=== PATIENT | female | born 1940 | race Caucasian/White ===

== ENCOUNTER 2016-06-08 20:33 | Inpatient (IN) | payer OTHER, MEDICARE ==
[~2016-06-08] VITALS: Ht 154.9 cm; Wt 73.1 kg
[2016-06-08 20:33] VITALS: BP 135/80; PULSE 113; RESP 18; O2SAT 92
[2016-06-08] MEDS ORDERED: SODIUM CHLORIDE 0.9% FLUSH 5 ML FLUSH IVF PRN ×2 (20:45→23:30)
[2016-06-08] MEDS ORDERED: MORPHINE SULFATE 4 MG/ML INJ IV PUSH ONE ×2 (20:45→21:45)
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
[2016-06-08 21:08] LABS: I-STAT POTASSIUM 3.2 MMOL/L (3.5-4.9); I-STAT SODIUM 138 MMOL/L (138-146)
[2016-06-08 21:09] VITALS: RESP 18; O2SAT 92
[2016-06-08 21:20] LABS: AUTOMATED NEUTROPHIL # 9.2 TH/MM3 (1.8-7.7); BASOPHIL % 0.3 % (0.0-2.0); EOSINOPHIL # 0.1 TH/MM3 (0-0.4); EOSINOPHIL % 0.8 % (0.0-4.0); HEMATOCRIT 37.1 % (35.0-46.0); HEMO FLAGS DIFF FINAL; LYMPH % 17.9 % (9.0-44.0); LYMPHOCYTE # 2.2 TH/MM3 (1.0-4.8); MEAN CELL VOLUME 97.9 FL (80.0-100.0); MEAN CORPUSCULAR HEMOGLOBIN 33.1 PG (27.0-34.0); MEAN CORPUSCULAR HGB CONC 33.8 % (32.0-36.0); MONO % 6.7 % (0.0-8.0); NEUT % 74.3 % (16.0-70.0); PLATELET COUNT 160 TH/MM3 (150-450); RED BLOOD COUNT 3.79 MIL/MM3 (4.00-5.30); WHITE BLOOD COUNT 12.5 TH/MM3 (4.0-11.0)
[2016-06-08 21:24] LABS: ANION GAP 10 MEQ/L (5-15); AST (GOT) 47 U/L (15-37); BICARBONATE 31.1 MEQ/L (21.0-32.0); BLOOD UREA NITROGEN 23 MG/DL (7-18); CHLORIDE 99 MEQ/L (98-107); GLOMERULAR FILTRATION RATE 60 ML/MIN (>89); POTASSIUM 3.2 MEQ/L (3.5-5.1); SODIUM (NA) 140 MEQ/L (136-145)
[2016-06-08 21:27] LABS: ALKALINE PHOSPHATASE 112 U/L (45-117); ALT (GPT) 28 U/L (10-53); TOTAL BILIRUBIN ADULT 0.5 MG/DL (0.2-1.0)
[2016-06-08] MEDS ORDERED: IOHEXOL 350 MG/ML 10 ML VIAL (for RAD DIAG) IV ONE (21:57)
[2016-06-08] MEDS ORDERED: CYMB30CA PO (22:01)
[2016-06-08] MEDS ORDERED: HYDR50TA15 PO (22:01)
[2016-06-08] MEDS ORDERED: NEXI40CA PO (22:01)
[2016-06-08] MEDS ORDERED: STATIN (22:01)
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
[2016-06-08] MEDS ORDERED: TETANUS/DIPHTHERIA TOXOID ADULT 0.5 ML VIAL IM ONE (23:00)
[2016-06-08 23:19] VITALS: BP 146/72; PULSE 100; RESP 20; O2SAT 98
[2016-06-08] MEDS ORDERED: ONDANSETRON HCL 4 MG/2 ML VIAL IV PRN (23:30)
[2016-06-08] MEDS ORDERED: ENALAPRILAT 1.25 MG/ML VIAL IV PRN (23:30)
[2016-06-08] MEDS ORDERED: MISCELLANEOUS NURSING INFORMATION XX SCH (23:30)
[2016-06-08] MEDS: BACITRACIN TOP OINT 15 GM TUBE TOP SCH (23:30)
[2016-06-08] MEDS: DOCUSATE SODIUM 100 MG/10 ML UDC PO SCH (23:30)
[2016-06-08] MEDS ORDERED: CHLORHEXIDINE GLUCONATE 2 % 1 PACK (2 CLOTHS) TOP PRN (23:30)
[2016-06-08] MEDS ORDERED: ACETAMINOPHEN/HYDROcodone 325 MG/5 MG TAB PO PRN (23:30)
[2016-06-09] VITALS (10 sets, daily range): BP systolic 102–140; BP diastolic 54–75; PULSE 94–104; RESP 16–20; TEMP 96.9–98.6; O2SAT 93–98
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
[2016-06-09] MEDS: DOCUSATE SODIUM 100 MG CAP PO SCH ×2 (01:12→07:27)
[2016-06-09] MEDS: SODIUM CHLOR 0.9% 1000 ML INJ 1,000 ML IV SCH ×4 (01:12→19:38)
[2016-06-09] MEDS: PANTOPRAZOLE SODIUM 40 MG VIAL IVP SCH (01:13)
[2016-06-09] MEDS: MORPHINE SULFATE 8 MG/ML INJ IV PUSH PRN ×9 (01:13→23:08)
[2016-06-09] MEDS: SODIUM CHLORID 0.9% 500 ML IV SCH ×2 (03:30→19:38)
[2016-06-09] MEDS ORDERED: INSULIN HUMAN REGULAR 1,000 UNITS/10 ML VIAL SQ PRN (03:30)
[2016-06-09] MEDS: LACTATED RINGER'S 1000 ML IV SCH ×2 (03:30→19:38)
[2016-06-09] MEDS ORDERED: CHLORHEXIDINE GLUCONATE 2 % 1 PACK (2 CLOTHS) TOP SCH (04:00)
[2016-06-09] MEDS: ACETAMINOPHEN/HYDROcodone 325 MG/5 MG TAB PO PRN ×5 (04:55→21:48)
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
[2016-06-09] MEDS ORDERED: NORC5TAB PO (06:51)
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
[2016-06-09] MEDS: DOCUSATE SODIUM 100 MG/10 ML UDC PO SCH (07:27)
[2016-06-09] MEDS: BACITRACIN TOP OINT 15 GM TUBE TOP SCH ×2 (07:54→19:44)
[2016-06-09 08:59] LABS: AUTOMATED NEUTROPHIL # 7.2 TH/MM3 (1.8-7.7); BASOPHIL % 0.4 % (0.0-2.0); EOSINOPHIL % 0.5 % (0.0-4.0); HEMATOCRIT 26.8 % (35.0-46.0); HEMO FLAGS DIFF FINAL; LYMPH % 15.3 % (9.0-44.0); LYMPHOCYTE # 1.5 TH/MM3 (1.0-4.8); MEAN CELL VOLUME 98.2 FL (80.0-100.0); MEAN CORPUSCULAR HEMOGLOBIN 33.1 PG (27.0-34.0); MEAN CORPUSCULAR HGB CONC 33.7 % (32.0-36.0); MONO % 9.7 % (0.0-8.0); NEUT % 74.1 % (16.0-70.0); PLATELET COUNT 123 TH/MM3 (150-450); RED BLOOD COUNT 2.73 MIL/MM3 (4.00-5.30); RED CELL DISTRIBUTION WIDTH 14.7 % (11.6-17.2); WHITE BLOOD COUNT 9.7 TH/MM3 (4.0-11.0)
[2016-06-09 09:30] LABS: BICARBONATE 31.6 MEQ/L (21.0-32.0); POTASSIUM 3.4 MEQ/L (3.5-5.1)
--- NOTE | 2016-06-09 09:43 | EKG ---
Date Performed: 06/09/2016 Time Performed: 05:10:42 PTAGE: 76 years EKG: Sinus tachycardia with PAC(s) Anterolateral T wave changes are nonspecific Borderline ECG NO PREVIOUS TRACING DOCTOR: Demarcus Parada Interpretating Date/Time 06/09/2016 09:42:04
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
[2016-06-09] MEDS ORDERED: POTASSIUM CHLORIDE 25 MEQ EFFERVESCENT TAB PO ONE (13:45)
[2016-06-09] MEDS: DOCUSATE SODIUM 50 MG/SENNA 8.6 MG TAB PO SCH (19:44)
[2016-06-09] MEDS: MAGNESIUM HYDROXIDE SUSP 30 ML CUP PO SCH (19:44)
[2016-06-10] MEDS: PANTOPRAZOLE SODIUM 40 MG VIAL IVP SCH (00:19)
[2016-06-10] MEDS: MORPHINE SULFATE 8 MG/ML INJ IV PUSH PRN ×5 (01:12→15:35)
[2016-06-10] MEDS: ACETAMINOPHEN/HYDROcodone 325 MG/5 MG TAB PO PRN ×3 (02:12→17:49)
[2016-06-10 03:25] VITALS: BP 119/58; PULSE 93; RESP 18; TEMP 97.5; O2SAT 95
[2016-06-10 08:00] VITALS: BP 117/52; PULSE 95; RESP 18; TEMP 96.7; O2SAT 98
[2016-06-10] MEDS: DOCUSATE SODIUM 50 MG/SENNA 8.6 MG TAB PO SCH ×2 (09:00→21:56)
[2016-06-10] MEDS: BACITRACIN TOP OINT 15 GM TUBE TOP SCH ×2 (09:00→21:00)
[2016-06-10] MEDS ORDERED: INFLUENZA VIRUS VACCINE (QUADRIVALENT) 0.5 ML SYR IM ONE (10:00)
--- NOTE | 2016-06-10 11:17 | PD.ORT.PN ---
Subjective Subjective Remarks No new complaints concerning her knee. She states she does have abdominal pain Objective Vitals Vital Signs Date Time Temp Pulse Resp B/P Pulse Ox O2 Delivery O2 Flow Rate FiO2 06/10/16 08:00 96.7 95 18 117/52 98 06/10/16 03:25 97.5 93 18 119/58 95 06/09/16 23:40 98.4 103 17 136/54 95 06/09/16 19:42 97 06/09/16 19:36 97.6 98 16 122/67 98 06/09/16 16:30 96.9 95 16 117/62 96 06/09/16 12:23 96 06/09/16 12:00 97.0 94 18 106/61 93 I/O 06/09/16 06/09/16 06/09/16 06/10/16 06/10/16 06/10/16 07:00 15:00 23:00 07:00 15:00 23:00 Intake Total 0 ml 1200 ml 720 ml 480 ml Balance 0 ml 1200 ml 720 ml 480 ml Intake Oral 0 ml 1200 ml 720 ml 480 ml # Voids 3 4 3 3 # Bowel Movements 0 1 0 0 Result Diagram: 06/09/16 0706 06/09/16 0706 Imaging Last 24 hours Impressions Hand X-Ray 06/09/16 0000 Signed Impressions: Service Date/Time: Thursday, June 09, 2016 00:33 - CONCLUSION: 1. Mildly displaced fracture distal right fifth metacarpal. Byron Laguna MD Pelvis X-Ray 06/08/162037 Signed Impressions: Service Date/Time: Wednesday, June 08, 2016 21:18 - CONCLUSION: No evidence of acute fracture. Status post left hip replacement. Rigoberto Darnell MD Head CT 06/08/162037 Signed Impressions: Service Date/Time: Wednesday, June 08, 2016 21:53 - CONCLUSION: No acute disease. No evidence of acute infarct, hemorrhage, mass or edema. No extra-axial fluid collections or evidence of fracture. Rigoberto Darnell MD Chest X-Ray 06/08/162037 Signed Impressions: Service Date/Time: Wednesday, June 08, 2016 21:02 - CONCLUSION: No acute disease. Rigoberto Darnell MD Chest CT 06/08/162037 Signed Impressions: Service Date/Time: Wednesday, June 08, 2016 21:57 - CONCLUSION: No evidence of acute pulmonary, mediastinal or vascular injury. Right upper anterior chest wall bruising. No evidence of acute fracture. Rigoberto Darnell MD Cervical Spine CT 06/08/162037 Signed Impressions: Service Date/Time: Wednesday, June 08, 2016 21:53 - CONCLUSION: Arthritic changes involving the C1-2 articulation with suspected calcifying pannus. Status post laminectomy and posterior fusion from C3-C6. Reversal of normal lordosis. Advanced degenerative disc disease. No evidence of acute bony or soft tissue trauma. Rigoberto Darnell MD Abdomen/Pelvis CT 06/08/162037 Signed Impressions: Service Date/Time: Wednesday, June 08, 2016 21:57 - CONCLUSION: Large lower anterior abdominal wall inflammation and hematoma. Small radiopaque structures in the right-sided portion of the hematoma. Distended gallbladder containing hyperdense material with mild intrahepatic hepatic biliary duct dilatation. No evidence of acute injury involving the liver, spleen, pancreas or kidneys. Degenerative disc disease of the lumbar spine resulting in a rotoscoliotic deformity. Pain pump is identified in place. No evidence of acute fracture. Rigoberto Darnell MD Objective Remarks RLE: +bruising and skin tears over anteromedial knee. minimal pain to touch. NVI , knee immobilizer in place Right hand: pain over 1st MC. Splint in place. Intact sensation over the radial , ulnar and median nerve distributions Assessment & Plan Assessment and Plan 1) Right Superior Patella Fx - nondisplaced -Nonop treatment -CKS at all times -no ROM -WBAT while wearing CKS -plan for DC home with [facility] -f/u Telma or [facility] in 2 weeks 2) Right Hand Fx -hand for fracture care BABATUNDE WALTERS PA-C Jun 10, 2016 11:17
[2016-06-10] MEDS ORDERED: WHEEMIS3 (11:19)
[2016-06-10] MEDS ORDERED: PLATMIS3 (11:19)
--- NOTE | 2016-06-10 11:21 | HHI.FF ---
Face to Face Verification Diagnosis: (1) Patellar fracture Physical Therapy Gait training, Safety evaluation Knee: Knee fracture, Protocol: Right, Full weight bearing Canvas Knee Splint: At all times Right LE Weight Bearing: WB as tolerated Right LE Range of Motion: No ROM I have seen patient Laurie Yusuf on 06/10/16. My clinical findings support the need for the requested home health care services because: Limited ability to care for self I certify that my clinical findings support that this patient is homebound because: Unsteady gait/balance BABATUNDE WALTERS PA-C Jun 10, 2016 11:21
[2016-06-10 12:00] VITALS: BP 102/45; PULSE 86; RESP 18; TEMP 96.6; O2SAT 95
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
[2016-06-10] MEDS ORDERED: SENN1TAB PO (13:10)
[2016-06-10] MEDS ORDERED: MILKSUS PO (13:10)
[2016-06-10] MEDS: SODIUM CHLOR 0.9% 1000 ML INJ 1,000 ML IV SCH (14:29)
[2016-06-10] MEDS: DULoxetine HCl DR 30 MG CAP PO SCH (15:47)
[2016-06-10] MEDS: METHOCARBAMOL 500 MG TAB PO SCH ×2 (17:00→21:56)
[2016-06-10] MEDS: GABAPENTIN 300 MG CAP PO SCH (17:48)
[2016-06-10 20:00] VITALS: BP 122/60; PULSE 91; RESP 18; TEMP 97.6; O2SAT 94
[2016-06-10] MEDS ORDERED: FAMOTIDINE 20 MG TAB PO SCH (21:00)
[2016-06-10] MEDS: MAGNESIUM HYDROXIDE SUSP 30 ML CUP PO SCH (21:00)
[2016-06-10] MEDS ORDERED: ATORVASTATIN 10 MG TAB PO SCH (21:00)
[2016-06-10] MEDS ORDERED: ACETAMINOPHEN 325 MG TAB PO PRN (21:45)
[2016-06-10] MEDS ORDERED: ALPRAZolam 0.5 MG TAB PO PRN (21:45)
[2016-06-11 00:01] VITALS: BP 109/54; PULSE 100; RESP 16; TEMP 98.7; O2SAT 92
[2016-06-11 04:02] VITALS: BP 125/55; PULSE 107; RESP 16; TEMP 97.7; O2SAT 91
[2016-06-11] MEDS: METHOCARBAMOL 500 MG TAB PO SCH (05:11)
[2016-06-11] MEDS ORDERED: MISC-163 (07:30)
[2016-06-11 08:00] VITALS: BP 97/50; PULSE 95; RESP 18; TEMP 97; O2SAT 92
[2016-06-11] MEDS: DOCUSATE SODIUM 50 MG/SENNA 8.6 MG TAB PO SCH ×2 (09:00→09:04)
[2016-06-11] MEDS: BACITRACIN TOP OINT 15 GM TUBE TOP SCH (09:00)
[2016-06-11] MEDS: DULoxetine HCl DR 30 MG CAP PO SCH (09:04)
[2016-06-11] MEDS: GABAPENTIN 300 MG CAP PO SCH (09:04)
[2016-06-11 12:00] VITALS: BP 125/56; PULSE 105; RESP 18; TEMP 97.5; O2SAT 95
[2016-06-11] MEDS ORDERED: ACET325T PO (12:12)
[2016-06-11] MEDS ORDERED: FAMO20TA2 PO (12:12)
[2016-06-11] MEDS ORDERED: ALPR.5 PO (12:12)
[2016-06-11] MEDS ORDERED: OXYC-392 PO (12:12)
[2016-06-11] MEDS ORDERED: LIPI10TA PO (12:12)
[2016-06-11] MEDS ORDERED: NEUR300C PO (12:12)
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
[2016-06-25] MEDS ORDERED: LIDO5DIS35 TD (09:54)
[2016-06-25] MEDS ORDERED: SENN1TAB PO (09:54)
[2016-06-25] MEDS ORDERED: DESI40OI2 TOPICAL (09:54)
[2016-06-25] MEDS ORDERED: ACET325T PO (09:54)
[2016-06-25] MEDS ORDERED: PROP10TA6 PO (09:54)
[2016-06-25] MEDS ORDERED: CYMB30CA PO (09:54)
[2016-06-25] MEDS ORDERED: BACI500O2 TOP (09:54)
[2016-06-25] MEDS ORDERED: LUNE1TAB6 PO (09:54)
[2016-06-25] MEDS ORDERED: OXYC-392 PO (09:54)
[2016-06-25] MEDS ORDERED: LIPI10TA PO (09:54)
[2016-06-25] MEDS ORDERED: MILKSUS PO (09:54)
[2016-06-25] MEDS ORDERED: ALPR.25 PO (09:54)
[2016-06-25] MEDS ORDERED: FERR325T PO (09:54)
[2016-06-25] MEDS ORDERED: HYDR50TA15 PO (09:54)
[2016-06-25] MEDS ORDERED: NEXI40CA PO (09:54)
== END 2016-06-11 12:30 | DRG 563 ==
LOC: NEPC 20:33 → NEDA 22:52 → N06B 06-09 03:04
PROVIDERS: ADMIT Surgery; ATTEND Surgery
DX: S82.001A Unspecified fracture of right patella, initial encounter for closed fracture (principal); M06.9 Rheumatoid arthritis, unspecified; I10 Essential (primary) hypertension; K21.9 Gastro-esophageal reflux disease without esophagitis; S62.306A Unspecified fracture of fifth metacarpal bone, right hand, initial encounter for closed fracture; S62.610A Displaced fracture of proximal phalanx of right index finger, initial encounter for closed fracture; S61.210A Laceration without foreign body of right index finger without damage to nail, initial encounter; S30.1XXA Contusion of abdominal wall, initial encounter; S40.019A Contusion of unspecified shoulder, initial encounter; S20.211A Contusion of right front wall of thorax, initial encounter; V44.6XXA Car passenger injured in collision with heavy transport vehicle or bus in traffic accident, initial encounter; Y92.410 Unspecified street and highway as the place of occurrence of the external cause; Z88.2 Allergy status to sulfonamides; Z91.030 Bee allergy status; S81.011A Laceration without foreign body, right knee, initial encounter; E78.5 Hyperlipidemia, unspecified; G89.29 Other chronic pain; M54.5 Low back pain; Z96.653 Presence of artificial knee joint, bilateral; E78.00 Pure hypercholesterolemia, unspecified; Z23 Encounter for immunization
CPT/HCPCS: 70450; 71010; 71260; 72125; 72128; 72131; 72170; 73130; 73564; 74177; 80048; 80053; 82435; 82565; 82947; 84132; 84295; 84520; 85025; 85610; 85730; 86850; 86900; 86901; 90471; 90686; 90714; 93005; 94150; 96374; 96376; C9113; G0008; J2270; J7030; J7120; L1830; Q2038; Q9967

== ENCOUNTER 2016-06-30 12:36 | Observation (INO) | payer MEDICARE ==
[~2016-06-30] VITALS: Ht 152.4 cm; Wt 80.0 kg
[2016-06-30] VITALS (7 sets, daily range): BP systolic 135–195; BP diastolic 65–96; PULSE 75–85; RESP 16–18; TEMP 97.8–98.5; O2SAT 80–97
[~2016-06-30 12:36] MED LIST: ACET325T PO; ALPR.25 PO; BACI500O2 TOP; CYMB30CA PO; DESI40OI2 TOPICAL; FERR325T PO; HYDR50TA15 PO; LIDO5DIS35 TD; LIPI10TA PO; LUNE1TAB6 PO; MILKSUS PO; MISC-163; NEXI40CA PO; OXYC-392 PO; PLATMIS3; PROP10TA6 PO; SENN1TAB PO; STATIN; WHEEMIS3
[2016-06-30 13:10] LABS: BLOOD GAS BASE EXCESS 10.5 mmol/L (-2-2); BLOOD GAS CARBOXYHEMOGLOBIN 4.3 % (0-4); BLOOD GAS HCO3 36 mmol/L (22-26); BLOOD GAS METHEMOGLOBIN 0.5 % (0-2); BLOOD GAS O2 HGB SATURATION 92 % (90-100); BLOOD GAS OXYGEN CONTENT 16.4 Vol % (12.0-20.0); BLOOD GAS PCO2 56 mmHg (38-42); BLOOD GAS PO2 83 mmHG (61-120); BLOOD GAS TOTAL HGB 12.6 G/DL (12.0-16.0); TEMP CORR TO 98.6
[2016-06-30 13:11] LABS: CRITICAL VALUE YES; DRAW SITE LT RADIAL; LITER FLOW 2 L/M; NUMBER OF ARTERIAL PUNCTURES 1; OXYGEN DEVICE NASAL CANNULA; STAT YES; ULNAR PULSE PRESENT
[2016-06-30 13:34] LABS: AUTOMATED NEUTROPHIL # 4.4 TH/MM3 (1.8-7.7); BASOPHIL % 0.7 % (0.0-2.0); EOSINOPHIL # 0.1 TH/MM3 (0-0.4); HEMATOCRIT 40.5 % (35.0-46.0); HEMO FLAGS DIFF FINAL; LYMPH % 15.8 % (9.0-44.0); MEAN CELL VOLUME 97.9 FL (80.0-100.0); MEAN CORPUSCULAR HEMOGLOBIN 32.1 PG (27.0-34.0); MEAN CORPUSCULAR HGB CONC 32.8 % (32.0-36.0); NEUT % 73.5 % (16.0-70.0); PLATELET COUNT 229 TH/MM3 (150-450); RED BLOOD COUNT 4.14 MIL/MM3 (4.00-5.30)
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
[2016-06-30 14:11] LABS: ALT (GPT) 16 U/L (10-53); ANION GAP 7 MEQ/L (5-15); AST (GOT) 26 U/L (15-37); BICARBONATE 36.2 MEQ/L (21.0-32.0); BLOOD UREA NITROGEN 11 MG/DL (7-18); CHLORIDE 95 MEQ/L (98-107); GLOMERULAR FILTRATION RATE 78 ML/MIN (>89); POTASSIUM 3.8 MEQ/L (3.5-5.1); SODIUM (NA) 138 MEQ/L (136-145)
[2016-06-30 14:13] LABS: ALKALINE PHOSPHATASE 117 U/L (45-117); TOTAL BILIRUBIN ADULT 1.9 MG/DL (0.2-1.0)
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
--- NOTE | 2016-06-30 14:27 | RADRPT ---
EXAM DATE/TIME: 06/30/2016 13:45 [facility] COMPARISON: KNEE RIGHT LTD (1 OR 2 VWS), June 22, 2016, 16:15. INDICATIONS : Weakness and confusion today. Evaluate lung status. MEDICAL HISTORY : Hypertension. Hypercholesterolemia. Gastroesophageal reflux disease. Cardiovascular disease. Arth ritis. SURGICAL HISTORY : Appendectomy. Pain pump. ENCOUNTER: Initial ACUITY: 1 day PAIN SCORE: Non-responsive. LOCATION: Bilateral chest FINDINGS: The heart is mildly enlarged. There are chronic-appearing interstitial changes throughout the pulmona ry parenchyma. The lungs are otherwise clear. There is rotatory scoliosis in the thoracic spine. CONCLUSION: 1. Chronic interstitial changes. No acute abnormality. Herminio Martinez MD on June 30, 2016 at 14:25 Board Certified Radiologist. This report was verified electronically.
[2016-06-30] MEDS ORDERED: hydrALAZINE HCL 20 MG/ML VIAL IV PUSH ONE (15:00)
[2016-06-30] MEDS ORDERED: CALC1TAB12 PO (15:14)
[2016-06-30] MEDS ORDERED: FUROSEMIDE 20 MG/2 ML VIAL IV PUSH ONE (15:15)
[2016-06-30] MEDS ORDERED: SODIUM CHLORIDE 0.9% FLUSH 10 ML FLUSH IV FLUSH PRN (15:30)
[2016-06-30] MEDS ORDERED: NALOXONE HCL 0.4 MG/ML AMP IV PRN (15:30)
[2016-06-30] MEDS ORDERED: ONDANSETRON HCL 4 MG/2 ML VIAL IVP PRN (15:30)
[2016-06-30] MEDS ORDERED: BISACODYL 10 MG SUPP PR PRN (15:30)
[2016-06-30] MEDS ORDERED: ACETAMINOPHEN 325 MG TAB PO PRN (15:30)
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
[2016-06-30] MEDS ORDERED: HEPARIN SODIUM - SQ 10,000 UNITS/ML VIAL SQ SCH (16:00)
[2016-06-30] MEDS ORDERED: AZITHROMYCIN INJ 250 MG in SODIUM CHLOR 0.9% 250 ML INJ 250 ML IV SCH (18:00)
[2016-06-30 18:02] LABS: BLOOD, URINE NEG (NEG); GLUCOSE,URINE NEG (NEG); HYALINE CAST, URINE 1 /lpf (RARE); KETONE, URINE NEG (NEG); NITRITE,URINE NEG (NEG); URINE COLOR YELLOW (YELLW/STRAW)
[2016-06-30 18:05] LABS: COMMENT (UR) CATH-CULT NOT IND; CULTURE IF INDICATED CATH CULTURE NOT IND
[2016-06-30 18:07] LABS: AMPHETAMINE, URINE NEG (NEG); BARBITURATES, URINE NEG (NEG); COCAINE, URINE NEG (NEG)
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
[2016-06-30] MEDS: PANTOPRAZOLE SODIUM 40 MG VIAL IV PUSH SCH (18:21)
[2016-06-30] MEDS: RESP: ALBUTEROL 2.5 MG/IPRATROPIUM 0.5 MG NEB (SCH) NEB (19:59)
[2016-06-30] MEDS ORDERED: cefTRIAXone INJ 1,000 MG in SODIUM CHLORIDE 0.9% INJ 100 ML IV SCH (20:00)
[2016-06-30] MEDS: CALCIUM/VITAMIN D 250 MG/125 U TAB PO SCH (20:26)
[2016-06-30] MEDS: ATORVASTATIN 10 MG TAB PO SCH (20:27)
[2016-06-30] MEDS: guaiFENesin E.R. 600 MG TAB PO SCH (20:27)
[2016-06-30] MEDS: SUCRALFATE 1 GM/10 ML CUP PO SCH (20:27)
[2016-06-30] MEDS: ZINC OXIDE 40% OINT 60 GM TUBE TOPICAL SCH (20:36)
[2016-06-30] MEDS: SODIUM CHLORIDE 0.9% FLUSH 10 ML FLUSH IV FLUSH SCH (20:37)
[2016-07-01] VITALS (10 sets, daily range): BP systolic 101–152; BP diastolic 45–78; PULSE 68–104; RESP 18–20; TEMP 97.7–98.8; O2SAT 92–100
[2016-07-01] MEDS: RESP: ALBUTEROL 2.5 MG/IPRATROPIUM 0.5 MG NEB (SCH) NEB ×7 (00:30→23:32)
[2016-07-01 03:45] LABS: AUTOMATED NEUTROPHIL # 5.5 TH/MM3 (1.8-7.7); BASOPHIL # 0.1 TH/MM3 (0-0.2); BASOPHIL % 0.9 % (0.0-2.0); EOSINOPHIL # 0.1 TH/MM3 (0-0.4); EOSINOPHIL % 1.8 % (0.0-4.0); HEMATOCRIT 36.9 % (35.0-46.0); HEMO FLAGS DIFF FINAL; LYMPH % 15.8 % (9.0-44.0); LYMPHOCYTE # 1.2 TH/MM3 (1.0-4.8); MEAN CELL VOLUME 98.8 FL (80.0-100.0); MEAN CORPUSCULAR HEMOGLOBIN 32.3 PG (27.0-34.0); MEAN CORPUSCULAR HGB CONC 32.7 % (32.0-36.0); MONO % 9.6 % (0.0-8.0); NEUT % 71.9 % (16.0-70.0); PLATELET COUNT 222 TH/MM3 (150-450); RED BLOOD COUNT 3.74 MIL/MM3 (4.00-5.30); RED CELL DISTRIBUTION WIDTH 16.5 % (11.6-17.2); WHITE BLOOD COUNT 7.7 TH/MM3 (4.0-11.0)
[2016-07-01 03:53] LABS: PROTHROMBIN TIME - PATIENT 11.3 SEC (9.8-11.6)
[2016-07-01] MEDS: SUCRALFATE 1 GM/10 ML CUP PO SCH ×4 (06:51→20:03)
[2016-07-01] MEDS: ZINC OXIDE 40% OINT 60 GM TUBE TOPICAL SCH ×2 (09:00→20:04)
[2016-07-01] MEDS ORDERED: ACETAMINOPHEN/HYDROcodone 325 MG/7.5 MG TAB PO PRN (09:00)
[2016-07-01] MEDS: SODIUM CHLORIDE 0.9% FLUSH 10 ML FLUSH IV FLUSH SCH ×2 (09:00→20:03)
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
[2016-07-01] MEDS: DULoxetine HCl DR 30 MG CAP PO SCH (09:20)
[2016-07-01] MEDS: guaiFENesin E.R. 600 MG TAB PO SCH ×2 (09:20→20:04)
[2016-07-01] MEDS: PROPRANOLOL HCL 10 MG TAB PO SCH ×2 (09:20→13:38)
[2016-07-01] MEDS: hydrALAZINE HCL 25 MG TAB PO SCH (09:20)
[2016-07-01] MEDS: ACETAMINOPHEN/HYDROcodone 325 MG/5 MG TAB PO PRN ×3 (09:20→23:29)
[2016-07-01] MEDS: CALCIUM/VITAMIN D 250 MG/125 U TAB PO SCH ×2 (09:20→20:04)
[2016-07-01] MEDS: FUROSEMIDE 40 MG TAB PO SCH (09:21)
--- NOTE | 2016-07-01 14:07 | EKG ---
Date Performed: 06/30/2016 Time Performed: 12:45:57 PTAGE: 76 years EKG: Sinus rhythm WITH FREQUENT SUPRAVENTRICULAR PREMATURE COMPLEXES IN A BIGEMINAL PATTERN POSSIBLE LEFT ATRIAL ENLAR GEMENT ST DEVIATION AND MODERATE T-WAVE ABNORMALITY, CONSIDER ANTEROLATERAL ISCHEMIA Compared to the previous tracing ventricular ectopy and T wave abnormalities are new, consider ischemia Clinical juan pablo elation is recommended ABNORMAL ECG PREVIOUS TRACING : 06/09/2016 05.10 DOCTOR: Edson Ramirez Interpretating Date/Time 07/01/2016 14:05:45
[2016-07-01] MEDS: PANTOPRAZOLE SODIUM 40 MG VIAL IV PUSH SCH (18:06)
--- NOTE | 2016-07-01 19:00 | EC ---
Study Study Date:07/01/2016 STUDY CONCLUSIONS SUMMARY - Procedure narrative: Transthoracic echocardiography. Image quality was fair. The study was technically limited due to poor acoustic window availability. - Left ventricle: The cavity size was normal. Systolic function was normal. The estimated ejection fraction was in the range of 60% to 65%. Although no diagnostic regional wall motion abnormality was identified, this possibility cannot be completely excluded on the basis of this study. Doppler parameters are consistent with abnormal left ventricular relaxation (grade 1 diastolic dysfunction). If LV function is below 40, please consider prescribing an ACEI or ARB or document rationale for non-use. PROCEDURE DATA STUDY STATUS: Elective. Procedure: Transthoracic echocardiography. Image quality was fair. The study was technically limited due to poor acoustic window availability. Scanning was performed from the parasternal, apical, and subcostal acoustic windows. Study completion: The patient tolerated the procedure well. Transthoracic echocardiography. M-mode, complete 2D, complete spectral Doppler, and color Doppler. Height: Height: 60in. Weight: Weight: 175.6lb. Body mass index: BMI: 34.4kg/m^2. Body surface area: BSA: 1.77m^2. Patient status: Inpatient. CARDIAC ANATOMY LEFT VENTRICLE: The cavity size was normal. Systolic function was normal. The estimated ejection fraction was in the range of 60% to 65%. Although no diagnostic regional wall motion abnormality was identified, this possibility cannot be completely excluded on the basis of this study. Doppler parameters are consistent with abnormal left ventricular relaxation (grade 1 diastolic dysfunction). AORTIC VALVE: The valve appears to be grossly normal. Trileaflet. Doppler: There was no stenosis. No significant regurgitation. Valve area: 2.16cm^2 (Vmax). Indexed valve area: 1.22cm^2/m^2 (Vmax). Peak gradient: 17mm Hg (S). MITRAL VALVE: The valve appears to be grossly normal. Doppler: There was no evidence for stenosis. Trace to mild regurgitation. LEFT ATRIUM: The atrium was normal in size. ATRIAL SEPTUM: No defect or patent foramen ovale was identified. RIGHT VENTRICLE: The cavity size was normal. PULMONIC VALVE: Not well visualized. Doppler: There was no evidence for stenosis. No significant regurgitation. TRICUSPID VALVE: The valve appears to be grossly normal. Doppler: There was no evidence for stenosis. Trace to mild regurgitation. PERICARDIUM: There was no pericardial effusion. Patient weight: 175.6lb _Ejection fraction:_ 65-75% _Fractional shortening:_ 32% up to 5Kg 5-11.5Kg 11.6-22.9Kg 23-45Kg 45-57Kg Aortic Root 7-13 <17 13-22 17-27 17-27 LA diam 6-13 <23 24-38 33-47 37-40 RVID 10-17 7-15 7-15 7-18 8-17 LVIDd 12-22 <32 24-38 33-47 37-40 LVPW 2-4 3-6 5-7 6-8 7-8 IVS 2-4 3-6 5-7 6-8 7-8 BASIC MEASUREMENTS ADULT NORMAL Left ventricle LV internal dimension, ED, chordal *38.3 mm 43-52 level, PLAX LV internal dimension, ES, chordal 30.2 mm 23-38 level, PLAX Fractional shortening, chordal level, *21 % >29 PLAX LV posterior wall thickness, ED 9.12 mm IVS/LVPW ratio, ED 1 <1.3 Ventricular septum Septal thickness, ED 9.1 mm Aortic valve Leaflet separation 18 mm 15-26 Right ventricle RV internal dimension, ED, PLAX 20.4 mm 19-38 BASIC MEASUREMENTS ADULT NORMAL Aortic valve Leaflet separation 18 mm 15-26 Aorta Root diameter, ED 29 mm 20-37 Left atrium Anterior-posterior dimension, ES 22 mm 19-40 Anterior-posterior dimension index, ES 1.24 cm/m^2 <2.2 LA/aortic root ratio 0.76 DOPPLER MEASUREMENTS ADULT NORMAL Main pulmonary artery Pressure, S *37 mm Hg =30 Aortic valve Peak velocity, S 208 cm/s Peak gradient, S 17 mm Hg Valve area, Vmax 2.16 cm^2 Valve area index, Vmax 1.22 cm^2/m^2 Mitral valve Peak E-wave velocity 70.1 cm/s Peak A-wave velocity 98.2 cm/s Deceleration time *257 ms 150-230 Peak E/A ratio 0.7 Maximal regurgitant velocity 227 cm/s Tricuspid valve Regurgitant peak velocity 292 cm/s Peak RV-RA gradient, S 34 mm Hg Maximal regurgitant velocity 292 cm/s Systemic veins Estimated CVP 10 mm Hg Right ventricle RV pressure, S *44 mm Hg <30 Pulmonic valve Peak velocity, S 132 cm/s LEGEND: Mean values are shown as u=mean value. Asterisk (*) [place] values outside specified normal range. Prepared and signed by Brown Alexandre [id number]
[2016-07-01] MEDS: ATORVASTATIN 10 MG TAB PO SCH (20:03)
[2016-07-01 22:36] LABS: BICARBONATE 34.9 MEQ/L (21.0-32.0); INDIRECT BILIRUBIN 0.8 MG/DL (0.0-0.8); TOTAL BILIRUBIN ADULT 1.2 MG/DL (0.2-1.0)
[2016-07-02] VITALS (10 sets, daily range): BP systolic 100–126; BP diastolic 50–60; PULSE 71–90; RESP 17–20; TEMP 97.8–98.2; O2SAT 80–97
[2016-07-02] MEDS ORDERED: ESZOPICLONE 1 MG TAB PO ONE (00:30)
[2016-07-02] MEDS: RESP: ALBUTEROL 2.5 MG/IPRATROPIUM 0.5 MG NEB (SCH) NEB ×5 (03:02→23:13)
[2016-07-02] MEDS: SUCRALFATE 1 GM/10 ML CUP PO SCH ×4 (06:27→21:00)
[2016-07-02 08:03] LABS: AUTOMATED NEUTROPHIL # 5.5 TH/MM3 (1.8-7.7); BASOPHIL % 0.5 % (0.0-2.0); EOSINOPHIL # 0.1 TH/MM3 (0-0.4); EOSINOPHIL % 1.4 % (0.0-4.0); HEMATOCRIT 35.7 % (35.0-46.0); HEMO FLAGS DIFF FINAL; LYMPH % 15.5 % (9.0-44.0); LYMPHOCYTE # 1.2 TH/MM3 (1.0-4.8); MEAN CELL VOLUME 97.7 FL (80.0-100.0); MEAN CORPUSCULAR HEMOGLOBIN 31.4 PG (27.0-34.0); MEAN CORPUSCULAR HGB CONC 32.2 % (32.0-36.0); MONO % 12.5 % (0.0-8.0); NEUT % 70.1 % (16.0-70.0); PLATELET COUNT 189 TH/MM3 (150-450); RED BLOOD COUNT 3.65 MIL/MM3 (4.00-5.30); RED CELL DISTRIBUTION WIDTH 16.5 % (11.6-17.2); WHITE BLOOD COUNT 7.9 TH/MM3 (4.0-11.0)
[2016-07-02 08:18] LABS: POTASSIUM 3.3 MEQ/L (3.5-5.1)
[2016-07-02] MEDS: FUROSEMIDE 40 MG TAB PO SCH (08:48)
[2016-07-02] MEDS: CALCIUM/VITAMIN D 250 MG/125 U TAB PO SCH ×2 (08:48→23:03)
[2016-07-02] MEDS: DULoxetine HCl DR 30 MG CAP PO SCH (08:48)
[2016-07-02] MEDS: hydrALAZINE HCL 25 MG TAB PO SCH (08:49)
[2016-07-02] MEDS: ZINC OXIDE 40% OINT 60 GM TUBE TOPICAL SCH ×2 (08:49→23:00)
[2016-07-02] MEDS: guaiFENesin E.R. 600 MG TAB PO SCH ×2 (08:49→23:03)
[2016-07-02] MEDS: SODIUM CHLORIDE 0.9% FLUSH 10 ML FLUSH IV FLUSH SCH ×2 (08:50→21:00)
[2016-07-02] MEDS: PROPRANOLOL HCL 10 MG TAB PO SCH ×2 (08:51→14:00)
[2016-07-02] MEDS: ACETAMINOPHEN/HYDROcodone 325 MG/5 MG TAB PO PRN ×3 (08:55→23:04)
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
[2016-07-02] MEDS: PETROLATUM 49%/ZINC OXIDE 15% 4 OUNCE TUBE TOPICAL SCH (12:45)
[2016-07-02] MEDS: POTASSIUM CHLORIDE 20 MEQ CONTROLLED RELEASE TAB PO SCH (12:46)
[2016-07-02] MEDS ORDERED: ALPR.25 PO (12:54)
[2016-07-02] MEDS ORDERED: OXYC-392 PO (12:54)
[2016-07-02] MEDS ORDERED: FURO20TA PO (12:54)
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
[2016-07-02] MEDS ORDERED: OXYGENTANK NAS.CANULA (12:57)
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
[2016-07-02] MEDS ORDERED: LORazepam 2 MG/ML VIAL IV PUSH ONE (16:00)
[2016-07-02] MEDS: MORPHINE SULFATE 4 MG/ML INJ IV PUSH ONE ×2 (16:00→17:01)
--- NOTE | 2016-07-02 16:30 | RADRPT ---
EXAM DATE/TIME: 07/02/2016 16:02 [facility] COMPARISON: CHEST SINGLE AP, June 30, 2016, 13:45. INDICATIONS : Pain MEDICAL HISTORY : Congestive heart failure. SURGICAL HISTORY : None. ENCOUNTER: Initial ACUITY: 1 day PAIN SCORE: 4/10 LOCATION: chest FINDINGS: The heart is stable. Minimal left basilar streakiness is noted consistent with probable atelectasis. There is elevation of the right hemidiaphragm. Degenerative changes and scoliosis of the thoracic spine are noted. No pulmonary edema is noted. CONCLUSION: 1. Minimal left basilar atelectasis. 2. Degenerative changes and scoliosis of the thoracic spine. 3. Elevation of the right hemidiaphragm. Reji Christiansen MD on July 02, 2016 at 16:25 Board Certified Radiologist. This report was verified electronically.
[2016-07-02] MEDS: PANTOPRAZOLE SODIUM 40 MG VIAL IV PUSH SCH (17:00)
[2016-07-02 17:49] LABS: CREATINE KINASE 98 U/L (26-192)
[2016-07-02] MEDS ORDERED: IOHEXOL 350 MG/ML 10 ML VIAL (for RAD DIAG) IV ONE (18:40)
--- NOTE | 2016-07-02 18:54 | RADRPT ---
EXAM DATE/TIME: 07/02/2016 18:39 [facility] COMPARISON: CT THORAX W/O CONTRAST, June 30, 2016, 17:52. INDICATIONS : Shortness of breath with chest pain; evaluate for pulmonary embolism. IV CONTRAST: 73 cc Omnipaque 350 (iohexol) IV RADIATION DOSE: 23.14 CTDIvol (mGy) MEDICAL HISTORY : Hypertension. Ulcers. Gastroesophageal reflux disease. SURGICAL HISTORY : Back surgery. ENCOUNTER: Initial ACUITY: 1 day PAIN SCALE: 5/10 LOCATION: chest TECHNIQUE: Volumetric scanning of the chest was performed using a pulmonary embolism protocol MIP images were re constructed. Using automated exposure control and adjustment of the mA and/or kV according to patien t size, radiation dose was kept as low as reasonably achievable to obtain optimal diagnostic quality images. FINDINGS: PULMONARY ARTERIES: No filling defects are seen in the pulmonary arteries through the segmental level. LUNGS: Patchy bilateral groundglass rectal opacities in areas of basilar atelectasis are grossly stable. PLEURAE: There is no pleural thickening or pleural effusion. MEDIASTINUM: There is good visualization of the great vessels of the middle mediastinum. No evidence of mediastin al or hilar adenopathy/mass. MUSCULOSKELETAL: Scoliosis and degenerative changes in the spine. MISCELLANEOUS: Elevated right diaphragm is unchanged. The visualized upper abdominal organs demonstrate no acute abn ormality. CONCLUSION: No evidence of pulmonary embolism Seferino Ram MD on July 02, 2016 at 18:49 Board Certified Radiologist. This report was verified electronically.
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
[2016-07-02] MEDS: ATORVASTATIN 10 MG TAB PO SCH (23:03)
[2016-07-03] MEDS: RESP: ALBUTEROL 2.5 MG/IPRATROPIUM 0.5 MG NEB (SCH) NEB ×3 (03:04→11:06)
[2016-07-03 03:17] VITALS: BP 121/60; PULSE 82; RESP 19; TEMP 97.9; O2SAT 95
[2016-07-03] MEDS: SUCRALFATE 1 GM/10 ML CUP PO SCH ×2 (06:25→11:57)
[2016-07-03 07:42] VITALS: BP 121/67; PULSE 90; RESP 18; TEMP 97.2; O2SAT 93
[2016-07-03 07:45] VITALS: O2SAT 94
[2016-07-03 08:00] VITALS: PULSE 92
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
[2016-07-03] MEDS: CALCIUM/VITAMIN D 250 MG/125 U TAB PO SCH (08:56)
[2016-07-03] MEDS: DULoxetine HCl DR 30 MG CAP PO SCH (08:56)
[2016-07-03] MEDS: guaiFENesin E.R. 600 MG TAB PO SCH (08:56)
[2016-07-03] MEDS: POTASSIUM CHLORIDE 20 MEQ CONTROLLED RELEASE TAB PO SCH (08:56)
[2016-07-03] MEDS: hydrALAZINE HCL 25 MG TAB PO SCH (08:56)
[2016-07-03] MEDS: FUROSEMIDE 40 MG TAB PO SCH (08:56)
[2016-07-03] MEDS: SODIUM CHLORIDE 0.9% FLUSH 10 ML FLUSH IV FLUSH SCH (08:57)
[2016-07-03] MEDS: ZINC OXIDE 40% OINT 60 GM TUBE TOPICAL SCH (09:00)
[2016-07-03] MEDS: PETROLATUM 49%/ZINC OXIDE 15% 4 OUNCE TUBE TOPICAL SCH (09:00)
[2016-07-03] MEDS: PROPRANOLOL HCL 10 MG TAB PO SCH (09:00)
[2016-07-03] MEDS ORDERED: SENS113T TOPICAL (11:35)
[2016-07-03] MEDS ORDERED: CYMB30CA PO (11:35)
[2016-07-03] MEDS ORDERED: LIPI10TA PO (11:35)
[2016-07-03] MEDS ORDERED: POTA-243 PO (11:35)
[2016-07-03] MEDS ORDERED: SENN1TAB PO (11:35)
[2016-07-03] MEDS ORDERED: NEXI40CA PO (11:35)
[2016-07-03] MEDS ORDERED: CALC1TAB12 PO (11:35)
[2016-07-03] MEDS ORDERED: LIDO5DIS35 TD (11:35)
[2016-07-03] MEDS ORDERED: PROP10TA6 PO (11:35)
[2016-07-03] MEDS ORDERED: HYDR50TA15 PO (11:35)
[2016-07-03] MEDS ORDERED: FERR325T PO (11:35)
[2016-07-03 12:05] VITALS: BP 104/51; PULSE 70; RESP 18; TEMP 97; O2SAT 92
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
--- NOTE | 2016-07-03 16:34 | EKG ---
Date Performed: 07/02/2016 Time Performed: 16:09:14 PTAGE: 76 years EKG: Sinus rhythm ARM LEADS REVERSED Anterior T wave abnormalities suggestive of endocardial ischemia or infarction Th e rest of the EKG cannot be compared due to incorrect lead placement on the limb leads ATYPICAL ECG PREVIOUS TRACING : 06/30/2016 12.45 DOCTOR: Yogesh Tay Interpretating Date/Time 07/03/2016 16:33:11
[2016-07-03] MEDS ORDERED: PANTOPRAZOLE SOD 40 MG DELAYED RELEASE TAB PO SCH (18:00)
== END 2016-07-03 14:45 | disposition home or self-care (01) ==
LOC: NEPA 12:36 → INTOOBSV 15:20 → NEDA 15:20 → NEPGCP 18:27 → UNDODISOB 07-03 14:13
PROVIDERS: ADMIT Hospitalist; ATTEND Hospitalist
DX: G93.41 Metabolic encephalopathy (principal); I11.0 Hypertensive heart disease with heart failure; I50.9 Heart failure, unspecified; G89.29 Other chronic pain; M19.90 Unspecified osteoarthritis, unspecified site; E78.00 Pure hypercholesterolemia, unspecified; K21.9 Gastro-esophageal reflux disease without esophagitis; R09.02 Hypoxemia; R06.02 Shortness of breath; L89.151 Pressure ulcer of sacral region, stage 1; I25.10 Atherosclerotic heart disease of native coronary artery without angina pectoris; E78.5 Hyperlipidemia, unspecified; M54.9 Dorsalgia, unspecified; F41.9 Anxiety disorder, unspecified; S82.009D Unspecified fracture of unspecified patella, subsequent encounter for closed fracture with routine healing; V89.2XXD Person injured in unspecified motor-vehicle accident, traffic, subsequent encounter; R07.89 Other chest pain; Z88.2 Allergy status to sulfonamides; Z88.8 Allergy status to other drugs, medicaments and biological substances; Z91.030 Bee allergy status; Z91.14 Patient's other noncompliance with medication regimen
CPT/HCPCS: 36600; 70450; 71010; 71250; 71275; 74000; 76937; 80048; 80053; 80076; 80307; 81001; 82550; 82805; 83690; 83880; 84484; 85025; 85610; 87040; 87449; 93005; 93306; 94150; 94620; 94640; 94664; 97163; 97166; 99285; C9113; G0378; G8987; G8988; J0456; J0696; J1940; J2060; J7050; Q9967; J2270

== ENCOUNTER 2016-07-21 16:25 | Inpatient (IN) | payer MEDICARE ==
[~2016-07-21] VITALS: Ht 152.4 cm; Wt 65.7 kg
[~2016-07-21 16:25] MED LIST changes: -ACET325T PO; -ALPR.25 PO; -BACI500O2 TOP; +CALC1TAB12 PO; -DESI40OI2 TOPICAL; +FURO20TA PO; -LUNE1TAB6 PO; -MILKSUS PO; -MISC-163; +OXYGENTANK NAS.CANULA; -PLATMIS3; +POTA-243 PO; +SENS113T TOPICAL; -STATIN; -WHEEMIS3
[2016-07-21 16:29] VITALS: BP 113/57; PULSE 80; RESP 18; TEMP 98.5; O2SAT 88
--- NOTE | 2016-07-21 16:46 | PD ---
Physical Exam Time Seen by Provider: 16:41 Narrative Pt brought to the ED by her daughter for evaluation AMS and low oxygen saturation. Per the daughter the patient is more confused today and was noted to have an oxygen saturation of 81% at the pain management clinic today. Patient denies CP or SOB. Oxygen saturation is 88% on RA here in the ED. Otherwise VS stable. Per daughter she was on oxygen until about 5 days ago, hx of CHF. Patient will be transferred to medical bed immediately from triage. Data Data Last Documented VS Vital Signs Date Time Temp Pulse Resp B/P Pulse Ox O2 Delivery O2 Flow Rate FiO2 07/21/16 16:29 98.5 80 18 113/57 88 Room Air MDM Supervised Visit with ALEK: Aida Quinonez Jul 21, 2016 16:46
[2016-07-21] MEDS ORDERED: SODIUM CHLORIDE 0.9% FLUSH 10 ML FLUSH IVF PRN (17:30)
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
--- NOTE | 2016-07-21 17:58 | RADRPT ---
EXAM DATE/TIME: 07/21/2016 17:29 [facility] COMPARISON: CHEST SINGLE AP, July 02, 2016, 16:02. INDICATIONS : Shortness of breath MEDICAL HISTORY : Hypertension SURGICAL HISTORY : None. ENCOUNTER: Initial ACUITY: 1 day PAIN SCORE: Non-responsive. LOCATION: Bilateral chest FINDINGS: A single view of the chest demonstrates the lungs to be symmetrically aerated without evidence of mas s, infiltrate or effusion. The cardiomediastinal contours are unremarkable. Osseous structures are intact. Elevation of the right hemidiaphragm again noted. CONCLUSION: No evidence of acute cardiopulmonary disease. Seferino Juárez MD on July 21, 2016 at 17:56 Board Certified Radiologist. This report was verified electronically.
[2016-07-21 18:23] LABS: AUTOMATED NEUTROPHIL # 4.1 TH/MM3 (1.8-7.7); BASOPHIL # 0.1 TH/MM3 (0-0.2); BASOPHIL % 0.9 % (0.0-2.0); EOSINOPHIL # 0.3 TH/MM3 (0-0.4); EOSINOPHIL % 4.2 % (0.0-4.0); HEMATOCRIT 39.9 % (35.0-46.0); HEMO FLAGS DIFF FINAL; LYMPH % 22.3 % (9.0-44.0); LYMPHOCYTE # 1.4 TH/MM3 (1.0-4.8); MEAN CELL VOLUME 94.2 FL (80.0-100.0); MEAN CORPUSCULAR HEMOGLOBIN 30.4 PG (27.0-34.0); MEAN CORPUSCULAR HGB CONC 32.3 % (32.0-36.0); MONO % 8.7 % (0.0-8.0); NEUT % 63.9 % (16.0-70.0); PLATELET COUNT 200 TH/MM3 (150-450); RED BLOOD COUNT 4.24 MIL/MM3 (4.00-5.30); RED CELL DISTRIBUTION WIDTH 15.3 % (11.6-17.2); WHITE BLOOD COUNT 6.3 TH/MM3 (4.0-11.0)
[2016-07-21 18:43] LABS: ANION GAP 3 MEQ/L (5-15); BLOOD UREA NITROGEN 14 MG/DL (7-18); CHLORIDE 96 MEQ/L (98-107); GLOMERULAR FILTRATION RATE 56 ML/MIN (>89); POTASSIUM 4.3 MEQ/L (3.5-5.1); SODIUM (NA) 137 MEQ/L (136-145)
[2016-07-21 18:47] LABS: CREATINE KINASE 104 U/L (26-192)
[2016-07-21 18:59] LABS: CKMB 10.5 NG/ML (0.5-3.6)
[2016-07-21] MEDS ORDERED: NALOXONE HCL 0.4 MG/ML AMP IV PRN (19:45)
[2016-07-21] MEDS ORDERED: ONDANSETRON HCL 4 MG/2 ML VIAL IVP PRN (19:45)
[2016-07-21] MEDS ORDERED: SODIUM CHLORIDE 0.9% FLUSH 10 ML FLUSH IV FLUSH PRN (19:45)
[2016-07-21 19:57] VITALS: O2SAT 93
[2016-07-21 20:33] LABS: BLOOD GAS BASE EXCESS 6.5 mmol/L (-2-2); BLOOD GAS CARBOXYHEMOGLOBIN 1.6 % (0-4); BLOOD GAS HCO3 33 mmol/L (22-26); BLOOD GAS METHEMOGLOBIN 0.5 % (0-2); BLOOD GAS O2 HGB SATURATION 95 % (90-100); BLOOD GAS OXYGEN CONTENT 17.1 Vol % (12.0-20.0); BLOOD GAS PCO2 74 mmHg (38-42); BLOOD GAS PO2 97 mmHG (61-120); BLOOD GAS TOTAL HGB 12.8 G/DL (12.0-16.0); TEMP CORR TO 98.6
[2016-07-21 20:35] LABS: CRITICAL VALUE YES; OXYGEN DEVICE NASAL CANNULA
[2016-07-21 20:36] LABS: DRAW SITE LT RADIAL; FIO2 94 %; LITER FLOW 3 L/M; NUMBER OF ARTERIAL PUNCTURES 1; STAT YES; ULNAR PULSE PRESENT
[2016-07-21] MEDS: SODIUM CHLORIDE 0.9% FLUSH 10 ML FLUSH IV FLUSH SCH (21:24)
[2016-07-21] MEDS: ENOXAPARIN SODIUM 40 MG/0.4 ML SYRINGE SQ SCH (21:24)
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
[2016-07-21] MEDS ORDERED: GNP3TAB PO (23:02)
[2016-07-21] MEDS ORDERED: OXYC-392 PO (23:02)
[2016-07-21] MEDS ORDERED: ESZO1TAB PO (23:02)
[2016-07-21] MEDS ORDERED: FERR325T PO (23:02)
[2016-07-21] MEDS ORDERED: ONDA1TAB16 PO (23:02)
[2016-07-21] MEDS ORDERED: OSCA200T PO (23:04)
[2016-07-21] MEDS ORDERED: K-TA10TA PO (23:09)
[2016-07-21] MEDS ORDERED: SENN8.6T19 PO (23:15)
[2016-07-21] MEDS ORDERED: TRAM50TA PO (23:15)
[2016-07-21] MEDS ORDERED: ONDANSETRON ODT 4 MG TAB PO PRN (23:30)
[2016-07-22] VITALS (7 sets, daily range): BP systolic 114–147; BP diastolic 55–78; PULSE 77–90; RESP 12–18; TEMP 95.4–98.7; O2SAT 85–97
[2016-07-22] MEDS: ACETAMINOPHEN 325 MG TAB PO PRN ×2 (01:41→09:46)
[2016-07-22 05:52] LABS: AUTOMATED NEUTROPHIL # 3.8 TH/MM3 (1.8-7.7); BASOPHIL # 0.1 TH/MM3 (0-0.2); BASOPHIL % 0.9 % (0.0-2.0); EOSINOPHIL # 0.3 TH/MM3 (0-0.4); EOSINOPHIL % 4.7 % (0.0-4.0); HEMATOCRIT 38.9 % (35.0-46.0); HEMO FLAGS DIFF FINAL; LYMPHOCYTE # 1.6 TH/MM3 (1.0-4.8); MEAN CELL VOLUME 92.9 FL (80.0-100.0); MEAN CORPUSCULAR HEMOGLOBIN 31.3 PG (27.0-34.0); MEAN CORPUSCULAR HGB CONC 33.6 % (32.0-36.0); MONO % 8.3 % (0.0-8.0); NEUT % 60.1 % (16.0-70.0); PLATELET COUNT 206 TH/MM3 (150-450); RED BLOOD COUNT 4.18 MIL/MM3 (4.00-5.30); WHITE BLOOD COUNT 6.3 TH/MM3 (4.0-11.0)
[2016-07-22 06:28] LABS: BICARBONATE 31.5 MEQ/L (21.0-32.0)
[2016-07-22] MEDS: DULoxetine HCl DR 30 MG CAP PO SCH (08:27)
[2016-07-22] MEDS: FUROSEMIDE 20 MG TAB PO SCH (08:27)
[2016-07-22] MEDS: CALCIUM/VITAMIN D 250 MG/125 U TAB PO SCH ×2 (08:27→20:46)
[2016-07-22] MEDS: PANTOPRAZOLE SOD 40 MG DELAYED RELEASE TAB PO SCH (08:27)
[2016-07-22] MEDS: LIDOCAINE HCL 5% PATCH T-DERMAL SCH (08:28)
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
[2016-07-22] MEDS: SODIUM CHLORIDE 0.9% FLUSH 10 ML FLUSH IV FLUSH SCH ×2 (09:00→20:49)
[2016-07-22] MEDS: FERROUS SULFATE 325 MG (65 MG ELEMENTAL IRON) TAB PO SCH ×2 (09:00→20:45)
[2016-07-22] MEDS: DOCUSATE SODIUM 50 MG/SENNA 8.6 MG TAB PO SCH ×2 (09:00→20:46)
[2016-07-22 13:01] LABS: BLOOD GAS BASE EXCESS 7.3 mmol/L (-2-2); BLOOD GAS HCO3 33 mmol/L (22-26); BLOOD GAS METHEMOGLOBIN 0.2 % (0-2); BLOOD GAS O2 HGB SATURATION 81 % (90-100); BLOOD GAS OXYGEN CONTENT 14.5 Vol % (12.0-20.0); BLOOD GAS PCO2 57 mmHg (38-42); BLOOD GAS PO2 49 mmHG (61-120); BLOOD GAS TOTAL HGB 12.8 G/DL (12.0-16.0); TEMP CORR TO 98.6
[2016-07-22 13:03] LABS: CRITICAL VALUE YES; DRAW SITE LT RADIAL; FIO2 21 %; NUMBER OF ARTERIAL PUNCTURES 1; OXYGEN DEVICE RA; STAT YES; ULNAR PULSE PRESENT
[2016-07-22] MEDS: LEVOFLOXACIN 750 MG TAB PO SCH (13:38)
[2016-07-22] MEDS: ACETAMINOPHEN/HYDROcodone 325 MG/5 MG TAB PO PRN (17:39)
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
[2016-07-22] MEDS: POTASSIUM CHLORIDE 10 MEQ CONTROLLED RELEASE TAB PO SCH (20:46)
[2016-07-22] MEDS: ATORVASTATIN 10 MG TAB PO SCH (20:46)
[2016-07-22] MEDS: ENOXAPARIN SODIUM 40 MG/0.4 ML SYRINGE SQ SCH (20:47)
[2016-07-23] VITALS (7 sets, daily range): BP systolic 103–131; BP diastolic 59–66; PULSE 79–98; RESP 16–22; TEMP 97.5–98; O2SAT 96–99
[2016-07-23] MEDS: ACETAMINOPHEN/HYDROcodone 325 MG/5 MG TAB PO PRN ×4 (00:29→23:01)
--- NOTE | 2016-07-23 07:14 | EKG ---
Date Performed: 07/21/2016 Time Performed: 18:39:59 PTAGE: 76 years EKG: Sinus rhythm NORMAL ECG Compared to PREVIOUS TRACING , the limb lead reversal has been corrected. Precordial T-wave changes a re less prominent. PREVIOUS TRACIN07/02/2016 16.09 DOCTOR: Edson Ramirez Interpretating Date/Time 07/23/2016 07:12:59
[2016-07-23] MEDS: FUROSEMIDE 20 MG TAB PO SCH (08:20)
[2016-07-23] MEDS: DOCUSATE SODIUM 50 MG/SENNA 8.6 MG TAB PO SCH ×2 (08:20→21:18)
[2016-07-23] MEDS: DULoxetine HCl DR 30 MG CAP PO SCH (08:20)
[2016-07-23] MEDS: LIDOCAINE HCL 5% PATCH T-DERMAL SCH (08:20)
[2016-07-23] MEDS: LEVOFLOXACIN 750 MG TAB PO SCH (08:20)
[2016-07-23] MEDS: CALCIUM/VITAMIN D 250 MG/125 U TAB PO SCH ×2 (08:20→21:16)
[2016-07-23] MEDS: PANTOPRAZOLE SOD 40 MG DELAYED RELEASE TAB PO SCH (08:20)
[2016-07-23] MEDS: FERROUS SULFATE 325 MG (65 MG ELEMENTAL IRON) TAB PO SCH ×2 (08:20→21:00)
[2016-07-23] MEDS: SODIUM CHLORIDE 0.9% FLUSH 10 ML FLUSH IV FLUSH SCH ×2 (08:20→21:17)
--- NOTE | 2016-07-23 14:05 | HHI.PR ---
Subjective Remarks ALERT UP IN CHAIR LESS CONFUSED Objective Vital Signs Date Time Temp Pulse Resp B/P Pulse Ox O2 Delivery O2 Flow Rate FiO2 07/23/16 12:00 98.0 98 22 128/59 96 07/23/16 09:40 97 Nasal Cannula 2.00 07/23/16 08:00 97.6 98 20 129/63 99 07/23/16 04:00 97.5 91 16 131/63 97 07/23/16 00:00 97.8 82 18 103/62 96 07/22/16 20:00 97.2 77 18 130/60 97 07/22/16 18:49 19 07/22/16 16:01 95.4 86 18 114/58 86 07/22/16 14:28 2.00 I/O 07/22/16 07/22/16 07/22/16 07/23/16 07/23/16 07/23/16 07:00 15:00 23:00 07:00 15:00 23:00 Intake Total 240 ml Balance 240 ml Intake Oral 240 ml # Voids 1 4 # Bowel Movements 0 Result Diagram: 07/22/16 0531 07/22/16 05 Objective Remarks GENERAL: SKIN: Warm and dry. HEAD: Atraumatic. Normocephalic. EYES: Pupils equal and round. No scleral icterus. No injection or drainage. ENT: No nasal bleeding or discharge. Mucous membranes pink and moist. NECK: Trachea midline. No JVD. CARDIOVASCULAR: Regular rate and rhythm. RESPIRATORY: No accessory muscle use. Clear to auscultation. Breath sounds equal bilaterally. GASTROINTESTINAL: Abdomen soft, non-tender, nondistended. Hepatic and splenic margins not palpable. MUSCULOSKELETAL: Extremities without clubbing, cyanosis, or edema. No obvious deformities. NEUROLOGICAL: Awake and alert. No obvious cranial nerve deficits. Motor grossly within normal limits. Five out of 5 muscle strength in the arms and legs. Normal speech. PSYCHIATRIC: Appropriate mood and affect; insight and judgment normal. Assessment and Plan Assessment and Plan ASSESSMENT RESPIRATORY FAILURE HYPOXIC AND HYPERCARBIC ? SDB CHF PLAN CHECK PFT O2 NEEDED BIPAP THERAPY Fabiola Hicks MD Jul 23, 2016 14:04
--- NOTE | 2016-07-23 16:42 | HHI.PR ---
Subjective Remarks Patient quite anxious, declines MRI brain due to claustrophobia, declines chest CT due to difficulty laying flat. Denies dyspnea. Wants to go home for east. Does not think she will be able to do bipap due to claustrophobia but agrees to try. No confusion. She did not sleep well and agrees to try melatonin. Objective Vitals Vital Signs Date Time Temp Pulse Resp B/P Pulse Ox O2 Delivery O2 Flow Rate FiO2 07/23/16 12:00 98.0 98 22 128/59 96 07/23/16 09:40 97 Nasal Cannula 2.00 07/23/16 08:00 97.6 98 20 129/63 99 07/23/16 04:00 97.5 91 16 131/63 97 07/23/16 00:00 97.8 82 18 103/62 96 07/22/16 20:00 97.2 77 18 130/60 97 07/22/16 18:49 19 I/O 07/22/16 07/22/16 07/22/16 07/23/16 07/23/16 07/23/16 07:00 15:00 23:00 07:00 15:00 23:00 Intake Total 240 ml Balance 240 ml Intake Oral 240 ml # Voids 1 4 # Bowel Movements 0 Result Diagram: 07/22/16 0531 07/22/16 0531 Objective Remarks GENERAL: Well-nourished, well-developed lean petite CF patient. Moderately anxious and tearful. SKIN: Warm and dry. HEAD: Normocephalic. EYES: No scleral icterus. No injection or drainage. NECK: Supple, trachea midline. No JVD or lymphadenopathy. CARDIOVASCULAR: Regular rate and rhythm without murmurs, gallops, or rubs. RESPIRATORY: Breath sounds equal and CTA bilaterally. No accessory muscle use on NC. GASTROINTESTINAL: Abdomen soft, non-tender, nondistended. EXTREMITIES: No cyanosis, or edema. NEUROLOGICAL: Awake, alert, and oriented x 3. Non-focal. A/P Problem List: (1) Hypoxia ICD Code: R09.02 Status: Acute (2) Hypercapnia ICD Code: R06.89 Status: Chronic (3) Chronic back pain ICD Code: M54.9 Status: Chronic (4) Congestive heart failure ICD Code: I50.9 Status: Chronic (5) HTN (hypertension) ICD Code: I10 Status: Chronic (6) GERD (gastroesophageal reflux disease) ICD Code: K21.9 Status: Chronic (7) Polypharmacy ICD Code: Z79.899 Status: Chronic (8) Acute respiratory failure ICD Code: J96.00 Status: Acute (9) Anxiety ICD Code: F41.9 Status: Chronic Assessment and Plan 76 year old patient with a past medical history which includes: CHF, DVT 40 years ago, not on anticoagulation currently, OA, anxiety disorder, CAD, HLD, chronic back pain with implanted pain pump. The patient was involved in a trauma 6 weeks ago, discharged to rehabilitation, later returned to [facility] from 06/30-07/03 treated for CHF then discharged to [facility]. At [facility] 4- 5 days ago patient's home oxygen was discontinued and she was reportedly doing well. Then earlier 07/21 patient was seen at pain clinic for monthly refill of implanted pain pump. Per daughter's report is at bedside patient was doing well in her normal state of health before the pain pump was refilled. After pain pump was refilled following discharge from the pain management clinic after morphine pain pump was refilled , the daughter noted that the patient was "loopy" and very sleepy had episodes where patient was, "staring off." Acute Respiratory Failure with Hypoxia/Hypercapnia: O2 sat 88% upon arrival. Initial ABG reviewed and reveals: pH 7.27, PCO2 74, PO2 94, HCO3 33. Repeat ABG 07/22 on RA improved, ph 7.37, PCO2 57, pO2 48. Continue NC O2. Cont levaquin. Appreciate pulm consultation - d/w Dr. Wilkins - plan for outpatient sleep study on tuesday -spirometry pending - no hx tobacco use but was exposed to 2nd hand smoke as a child -pt declines chest CT - had recent CTA showing interstitial changes, no PE trial of bipap - unclear if she will tolerate due to severe encephalopathy -d/w pt and daughter in detail - avoid benzos, limit opioids and sedating medications Acute metabolic encephalopathy - due to hypoxia polypharmcy, resolved. limit sedation. pt declines brain MRI due to claustrophobia. Chronic back pain - cont lortab prn, she is tolerating well without resp depression. also has intrathecal pain pump managed by Dr. Patton. Gneeralized anxiety - consider SSRI. Chronic diastolic CHF: CXR images reviewed, no acute findings. BNP 40. Continue home Lasix. echo recently showed preserved EF grade 1 diastolic dysfunction. Insomina - start melatonin 5 mg PO HS GERD: continue home Nexium DVT prophylaxis with Lovenox Discharge Planning To [facility] with [facility] when stable for DC. pulmonology consulted. Problem Qualifiers (1) Congestive heart failure: Lupe Thomas MD Jul 23, 2016 16:42
[2016-07-23] MEDS: ENOXAPARIN SODIUM 40 MG/0.4 ML SYRINGE SQ SCH (21:16)
[2016-07-23] MEDS: ATORVASTATIN 10 MG TAB PO SCH (21:16)
[2016-07-23] MEDS: POTASSIUM CHLORIDE 10 MEQ CONTROLLED RELEASE TAB PO SCH (21:16)
[2016-07-23] MEDS: MELATONIN 5 MG TAB PO SCH (23:00)
[2016-07-24] VITALS (7 sets, daily range): BP systolic 107–147; BP diastolic 55–83; PULSE 78–95; RESP 12–18; TEMP 97.5–97.8; O2SAT 92–97
[2016-07-24] MEDS: LEVOFLOXACIN 750 MG TAB PO SCH (08:01)
[2016-07-24] MEDS: DULoxetine HCl DR 30 MG CAP PO SCH (08:01)
[2016-07-24] MEDS: DOCUSATE SODIUM 50 MG/SENNA 8.6 MG TAB PO SCH ×2 (08:02→20:37)
[2016-07-24] MEDS: LIDOCAINE HCL 5% PATCH T-DERMAL SCH (08:02)
[2016-07-24] MEDS: SODIUM CHLORIDE 0.9% FLUSH 10 ML FLUSH IV FLUSH SCH ×2 (08:02→20:38)
[2016-07-24] MEDS: FUROSEMIDE 20 MG TAB PO SCH (08:02)
[2016-07-24] MEDS: PANTOPRAZOLE SOD 40 MG DELAYED RELEASE TAB PO SCH (08:02)
[2016-07-24] MEDS: FERROUS SULFATE 325 MG (65 MG ELEMENTAL IRON) TAB PO SCH ×2 (08:02→20:37)
[2016-07-24] MEDS: CALCIUM/VITAMIN D 250 MG/125 U TAB PO SCH ×2 (08:02→20:37)
[2016-07-24] MEDS: ACETAMINOPHEN/HYDROcodone 325 MG/5 MG TAB PO PRN ×3 (08:07→23:54)
--- NOTE | 2016-07-24 13:00 | HHI.PR ---
Subjective Remarks ALERT UP IN CHAIR LESS CONFUSED Objective Vital Signs Date Time Temp Pulse Resp B/P Pulse Ox O2 Delivery O2 Flow Rate FiO2 07/24/16 12:14 97 Nasal Cannula 2.00 07/24/16 08:00 97.5 94 12 122/83 94 07/24/16 04:00 97.8 95 18 147/70 95 07/24/16 00:00 97.7 94 18 119/58 92 07/23/16 20:00 97.5 79 18 122/61 96 07/23/16 16:00 97.5 85 20 111/66 96 I/O 07/23/16 07/23/16 07/23/16 07/24/16 07/24/16 07/24/16 07:00 15:00 23:00 07:00 15:00 23:00 Intake Total 240 ml 720 ml 240 ml 120 ml Output Total 700 ml 175 ml 100 ml Balance 240 ml 20 ml 65 ml 20 ml Intake Oral 240 ml 720 ml 240 ml 120 ml Output Urine Total 700 ml 175 ml 100 ml # Voids 4 1 # Bowel Movements 0 0 0 0 Result Diagram: 07/22/1631 07/22/16530 Objective Remarks GENERAL: SKIN: Warm and dry. HEAD: Atraumatic. Normocephalic. EYES: Pupils equal and round. No scleral icterus. No injection or drainage. ENT: No nasal bleeding or discharge. Mucous membranes pink and moist. NECK: Trachea midline. No JVD. CARDIOVASCULAR: Regular rate and rhythm. RESPIRATORY: No accessory muscle use. Clear to auscultation. Breath sounds equal bilaterally. GASTROINTESTINAL: Abdomen soft, non-tender, nondistended. Hepatic and splenic margins not palpable. MUSCULOSKELETAL: Extremities without clubbing, cyanosis, or edema. No obvious deformities. NEUROLOGICAL: Awake and alert. No obvious cranial nerve deficits. Motor grossly within normal limits. Five out of 5 muscle strength in the arms and legs. Normal speech. PSYCHIATRIC: Appropriate mood and affect; insight and judgment normal. Assessment and Plan Assessment and Plan ASSESSMENT RESPIRATORY FAILURE HYPOXIC AND HYPERCARBIC ? SDB CHF PLAN CHECK PFT O2 NEEDED BIPAP THERAPY Fabiola Hicks MD Jul 24, 2016 13:00
--- NOTE | 2016-07-24 15:46 | HHI.PR ---
Subjective Remarks Patient less anxious, agreeable to staying in hospital, did not receive bipap last night, she is however very concerned about not being able to tolerate bipap due to severe claustrophobia and what will happen to her if she can't wear it. patient reassured. Objective Vitals Vital Signs Date Time Temp Pulse Resp B/P Pulse Ox O2 Delivery O2 Flow Rate FiO2 07/24/16 12:14 97 Nasal Cannula 2.00 07/24/16 12:00 97.8 78 12 108/55 96 07/24/16 08:00 97.5 94 12 122/83 94 07/24/16 04:00 97.8 95 18 147/70 95 07/24/16 00:00 97.7 94 18 119/58 92 07/23/16 20:00 97.5 79 18 122/61 96 07/23/16 16:00 97.5 85 20 111/66 96 I/O 07/23/16 07/23/16 07/23/16 07/24/16 07/24/16 07/24/16 07:00 15:00 23:00 07:00 15:00 23:00 Intake Total 240 ml 720 ml 240 ml 120 ml Output Total 700 ml 175 ml 100 ml Balance 240 ml 20 ml 65 ml 20 ml Intake Oral 240 ml 720 ml 240 ml 120 ml Output Urine Total 700 ml 175 ml 100 ml # Voids 4 1 # Bowel Movements 0 0 0 0 Result Diagram: 07/22/1653007/22/16530 Objective Remarks GENERAL: Well-nourished, well-developed lean petite CF patient. Moderately anxious and tearful. SKIN: Warm and dry. HEAD: Normocephalic. EYES: No scleral icterus. No injection or drainage. NECK: Supple, trachea midline. No JVD or lymphadenopathy. CARDIOVASCULAR: Regular rate and rhythm without murmurs, gallops, or rubs. RESPIRATORY: Breath sounds equal and CTA bilaterally. No accessory muscle use on NC. GASTROINTESTINAL: Abdomen soft, non-tender, nondistended. EXTREMITIES: No cyanosis, or edema. NEUROLOGICAL: Awake, alert, and oriented x 3. Non-focal. A/P Problem List: (1) Hypoxia ICD Code: R09.02 Status: Acute (2) Hypercapnia ICD Code: R06.89 Status: Chronic (3) Chronic back pain ICD Code: M54.9 Status: Chronic (4) Congestive heart failure ICD Code: I50.9 Status: Chronic (5) HTN (hypertension) ICD Code: I10 Status: Chronic (6) GERD (gastroesophageal reflux disease) ICD Code: K21.9 Status: Chronic (7) Polypharmacy ICD Code: Z79.899 Status: Chronic (8) Acute respiratory failure ICD Code: J96.00 Status: Acute (9) Anxiety ICD Code: F41.9 Status: Chronic Assessment and Plan 76 year old patient with a past medical history which includes: CHF, DVT 40 years ago, not on anticoagulation currently, OA, anxiety disorder, CAD, HLD, chronic back pain with implanted pain pump. The patient was involved in a trauma 6 weeks ago, discharged to rehabilitation, later returned to [facility] from 06/30-07/03 treated for CHF then discharged to [facility]. At [facility] 4- 5 days ago patient's home oxygen was discontinued and she was reportedly doing well. Then earlier 07/21 patient was seen at pain clinic for monthly refill of implanted pain pump. Per daughter's report is at bedside patient was doing well in her normal state of health before the pain pump was refilled. After pain pump was refilled following discharge from the pain management clinic after morphine pain pump was refilled , the daughter noted that the patient was "loopy" and very sleepy had episodes where patient was, "staring off." Acute Respiratory Failure with Hypoxia/Hypercapnia: O2 sat 88% upon arrival. Initial ABG reviewed and reveals: pH 7.27, PCO2 74, PO2 94, HCO3 33. Repeat ABG 07/22 on RA improved, ph 7.37, PCO2 57, pO2 48. Continue NC O2. Cont levaquin. Appreciate pulm consultation - d/w Dr. Wilkins - plan for outpatient sleep study on tuesday -spirometry pending - no hx tobacco use but was exposed to 2nd hand smoke as a child -pt declines chest CT - had recent CTA showing interstitial changes, no PE trial of bipap - unclear if she will tolerate due to severe claustrophobia - d/w Dr. Wilkins -d/w pt and daughter in detail previously - avoid benzos, limit opioids and sedating medications Acute metabolic encephalopathy - due to hypoxia polypharmcy, now resolved. limit sedation. pt declines brain MRI due to claustrophobia. Chronic back pain - cont lortab prn, she is tolerating well without resp depression. also has intrathecal pain pump managed by Dr. Patton. Gneeralized anxiety - consider SSRI. Chronic diastolic CHF: CXR images reviewed, no acute findings. BNP 40. Continue home Lasix. echo recently showed preserved EF grade 1 diastolic dysfunction. Insomina - cont melatonin 5 mg PO HS GERD: continue home Nexium DVT prophylaxis with Lovenox Discharge Planning To [facility] with [facility] when stable for DC. Problem Qualifiers (1) Congestive heart failure: Lupe Thomas MD Jul 24, 2016 15:46
[2016-07-24] MEDS: MELATONIN 5 MG TAB PO SCH (20:37)
[2016-07-24] MEDS: ATORVASTATIN 10 MG TAB PO SCH (20:37)
[2016-07-24] MEDS: ENOXAPARIN SODIUM 40 MG/0.4 ML SYRINGE SQ SCH (20:37)
[2016-07-24] MEDS: POTASSIUM CHLORIDE 10 MEQ CONTROLLED RELEASE TAB PO SCH (20:37)
[2016-07-25] VITALS (8 sets, daily range): BP systolic 99–130; BP diastolic 55–98; PULSE 76–91; RESP 16–18; TEMP 97.4–98.6; O2SAT 93–98
[2016-07-25] MEDS: ACETAMINOPHEN/HYDROcodone 325 MG/5 MG TAB PO PRN ×2 (09:04→20:32)
[2016-07-25] MEDS: LIDOCAINE HCL 5% PATCH T-DERMAL SCH (09:04)
[2016-07-25] MEDS: DOCUSATE SODIUM 50 MG/SENNA 8.6 MG TAB PO SCH ×2 (09:04→20:31)
[2016-07-25] MEDS: SODIUM CHLORIDE 0.9% FLUSH 10 ML FLUSH IV FLUSH SCH ×2 (09:04→20:32)
[2016-07-25] MEDS: DULoxetine HCl DR 30 MG CAP PO SCH (09:04)
[2016-07-25] MEDS: FUROSEMIDE 20 MG TAB PO SCH (09:04)
[2016-07-25] MEDS: PANTOPRAZOLE SOD 40 MG DELAYED RELEASE TAB PO SCH (09:04)
[2016-07-25] MEDS: FERROUS SULFATE 325 MG (65 MG ELEMENTAL IRON) TAB PO SCH ×2 (09:04→20:30)
[2016-07-25] MEDS: CALCIUM/VITAMIN D 250 MG/125 U TAB PO SCH ×2 (09:04→20:31)
[2016-07-25] MEDS: LEVOFLOXACIN 750 MG TAB PO SCH (09:04)
--- NOTE | 2016-07-25 12:11 | HHI.PR ---
Subjective Remarks ALERT UP IN CHAIR no SOB Objective Vital Signs Date Time Temp Pulse Resp B/P Pulse Ox O2 Delivery O2 Flow Rate FiO2 07/25/16 10:04 16 07/25/16 08:00 97.4 90 16 130/64 94 07/25/16 02:10 76 07/25/16 00:00 98.1 90 18 126/60 95 07/24/16 20:00 97.8 83 16 117/56 92 07/24/16 16:00 97.8 94 12 107/55 95 07/24/16 12:14 97 Nasal Cannula 2.00 I/O 07/24/16 07/24/16 07/24/16 07/25/16 07/25/16 07/25/16 07:00 15:00 23:00 07:00 15:00 23:00 Intake Total 120 ml 480 ml 240 ml 120 ml Output Total 100 ml 200 ml 600 ml Balance 20 ml 480 ml 40 ml -480 ml Intake Oral 120 ml 480 ml 240 ml 120 ml Output Urine Total 100 ml 200 ml 600 ml # Voids 1 # Bowel Movements 0 0 0 0 Result Diagram: 07/22/1653007/22/16530 Objective Remarks GENERAL: SKIN: Warm and dry. HEAD: Atraumatic. Normocephalic. EYES: Pupils equal and round. No scleral icterus. No injection or drainage. ENT: No nasal bleeding or discharge. Mucous membranes pink and moist. NECK: Trachea midline. No JVD. CARDIOVASCULAR: Regular rate and rhythm. RESPIRATORY: No accessory muscle use. Clear to auscultation. Breath sounds equal bilaterally. GASTROINTESTINAL: Abdomen soft, non-tender, nondistended. Hepatic and splenic margins not palpable. MUSCULOSKELETAL: Extremities without clubbing, cyanosis, or edema. No obvious deformities. NEUROLOGICAL: Awake and alert. No obvious cranial nerve deficits. Motor grossly within normal limits. Five out of 5 muscle strength in the arms and legs. Normal speech. PSYCHIATRIC: Appropriate mood and affect; insight and judgment normal. Assessment and Plan Assessment and Plan ASSESSMENT RESPIRATORY FAILURE HYPOXIC AND HYPERCARBIC ? SDB CHF PLAN CHECK PFT O2 NEEDED BIPAP THERAPY CHECK ABG CTA CHEST Fabiola Hicks MD Jul 25, 2016 12:11
--- NOTE | 2016-07-25 15:37 | HHI.PR ---
Subjective Remarks Patient doing well. Came back from the bathroom but forgot her oxygen back on and is reading a book. Denies dyspnea. She did not wear BiPAP last night. Sleeping well with the melatonin. Calm today. Objective Vitals Vital Signs Date Time Temp Pulse Resp B/P Pulse Ox O2 Delivery O2 Flow Rate FiO2 07/25/16 14:50 93 2.00 07/25/16 12:00 98.0 80 18 118/58 97 07/25/16 10:04 16 07/25/16 08:00 97.4 90 16 130/64 94 07/25/16 02:10 76 07/25/16 00:00 98.1 90 18 126/60 95 07/24/16 20:00 97.8 83 16 117/56 92 07/24/16 16:00 97.8 94 12 107/55 95 I/O 07/24/16 07/24/16 07/24/16 07/25/16 07/25/16 07/25/16 07:00 15:00 23:00 07:00 15:00 23:00 Intake Total 120 ml 480 ml 240 ml 120 ml Output Total 100 ml 200 ml 600 ml Balance 20 ml 480 ml 40 ml -480 ml Intake Oral 120 ml 480 ml 240 ml 120 ml Output Urine Total 100 ml 200 ml 600 ml # Voids 1 # Bowel Movements 0 0 0 0 Result Diagram: 07/22/1653007/22/16530 Objective Remarks GENERAL: Well-nourished, well-developed lean petite CF patient. Calm and cheerful. SKIN: Warm and dry. HEAD: Normocephalic. EYES: No scleral icterus. No injection or drainage. NECK: Supple, trachea midline. No JVD or lymphadenopathy. CARDIOVASCULAR: Regular rate and rhythm without murmurs, gallops, or rubs. RESPIRATORY: Breath sounds equal and CTA bilaterally. No accessory muscle use. O2 NC replaced. GASTROINTESTINAL: Abdomen soft, non-tender, nondistended. EXTREMITIES: No cyanosis, or edema. NEUROLOGICAL: Awake, alert, and oriented x 3. Non-focal. A/P Problem List: (1) Hypoxia ICD Code: R09.02 Status: Acute (2) Hypercapnia ICD Code: R06.89 Status: Chronic (3) Chronic back pain ICD Code: M54.9 Status: Chronic (4) Congestive heart failure ICD Code: I50.9 Status: Chronic (5) HTN (hypertension) ICD Code: I10 Status: Chronic (6) GERD (gastroesophageal reflux disease) ICD Code: K21.9 Status: Chronic (7) Polypharmacy ICD Code: Z79.899 Status: Chronic (8) Acute respiratory failure ICD Code: J96.00 Status: Acute (9) Anxiety ICD Code: F41.9 Status: Chronic Assessment and Plan 76 year old patient with a past medical history which includes: CHF, DVT 40 years ago, not on anticoagulation currently, OA, anxiety disorder, CAD, HLD, chronic back pain with implanted pain pump. The patient was involved in a trauma 6 weeks ago, discharged to rehabilitation, later returned to [facility] from 06/30-07/03 treated for CHF then discharged to [facility]. At [facility] 4- 5 days ago patient's home oxygen was discontinued and she was reportedly doing well. Then earlier 07/21 patient was seen at pain clinic for monthly refill of implanted pain pump. Per daughter's report is at bedside patient was doing well in her normal state of health before the pain pump was refilled. After pain pump was refilled following discharge from the pain management clinic after morphine pain pump was refilled , the daughter noted that the patient was "loopy" and very sleepy had episodes where patient was, "staring off." Acute Respiratory Failure with Hypoxia/Hypercapnia: O2 sat 88% upon arrival. Initial ABG reviewed and reveals: pH 7.27, PCO2 74, PO2 94, HCO3 33. Repeat ABG 07/22 on RA improved, ph 7.37, PCO2 57, pO2 48. Continue NC O2. Cont levaquin - 7 days Arrange home O2. Appreciate pulm consultation - d/w Dr. Wilkins - plan for outpatient sleep study on tuesday -spirometry pending - no hx tobacco use but was exposed to 2nd hand smoke as a child -pt declines chest CT - had recent CTA showing interstitial changes, no PE trial of bipap - unclear if she will tolerate due to severe claustrophobia - d/w Dr. Wilkins - pt has not yet worn bipap -d/w pt and daughter in detail previously - avoid benzos, limit opioids and sedating medications Acute metabolic encephalopathy - due to hypoxia polypharmcy, now resolved. limit sedation. pt declines brain MRI due to claustrophobia. Chronic back pain - cont lortab prn, she is tolerating well without resp depression. also has intrathecal pain pump managed by Dr. Patton. Gneeralized anxiety - consider SSRI. Chronic diastolic CHF: CXR images reviewed, no acute findings. BNP 40. Continue home Lasix. echo recently showed preserved EF grade 1 diastolic dysfunction. Insomina -improved. cont melatonin 5 mg PO HS GERD: continue home Nexium DVT prophylaxis with Lovenox Discharge Planning To [facility] with [facility] anticipated tomorrow. Sleep study test is being arranged tomorrow as well per Dr. Wilkins Problem Qualifiers (1) Congestive heart failure: Lupe Thomas MD Jul 25, 2016 15:36
[2016-07-25 18:19] LABS: BLOOD GAS CARBOXYHEMOGLOBIN 1.5 % (0-4); BLOOD GAS HCO3 33 mmol/L (22-26); BLOOD GAS METHEMOGLOBIN 0.8 % (0-2); BLOOD GAS O2 HGB SATURATION 87 % (90-100); BLOOD GAS OXYGEN CONTENT 15.2 Vol % (12.0-20.0); BLOOD GAS PCO2 52 mmHg (38-42); BLOOD GAS PO2 60 mmHg (61-120); BLOOD GAS TOTAL HGB 12.4 G/DL (12.0-16.0); TEMP CORR TO 98.6
[2016-07-25 18:20] LABS: CRITICAL VALUE YES; DRAW SITE LT RADIAL; FIO2 21 %; NUMBER OF ARTERIAL PUNCTURES 1; STAT NO; ULNAR PULSE PRESENT
[2016-07-25] MEDS: ATORVASTATIN 10 MG TAB PO SCH (20:31)
[2016-07-25] MEDS: POTASSIUM CHLORIDE 10 MEQ CONTROLLED RELEASE TAB PO SCH (20:31)
[2016-07-25] MEDS: ENOXAPARIN SODIUM 40 MG/0.4 ML SYRINGE SQ SCH (20:32)
[2016-07-26] MEDS: MELATONIN 5 MG TAB PO SCH ×2 (00:22→20:41)
[2016-07-26] MEDS: ACETAMINOPHEN/HYDROcodone 325 MG/5 MG TAB PO PRN ×3 (00:22→14:25)
[2016-07-26 08:00] VITALS: BP 118/56; PULSE 82; RESP 20; TEMP 98.2; O2SAT 94
[2016-07-26 08:05] VITALS: PULSE 86
[2016-07-26] MEDS: LIDOCAINE HCL 5% PATCH T-DERMAL SCH (09:00)
[2016-07-26] MEDS: DOCUSATE SODIUM 50 MG/SENNA 8.6 MG TAB PO SCH ×2 (09:00→20:42)
[2016-07-26] MEDS: SODIUM CHLORIDE 0.9% FLUSH 10 ML FLUSH IV FLUSH SCH ×2 (09:00→20:44)
[2016-07-26] MEDS: LEVOFLOXACIN 750 MG TAB PO SCH (09:47)
[2016-07-26] MEDS: FERROUS SULFATE 325 MG (65 MG ELEMENTAL IRON) TAB PO SCH ×2 (09:48→20:43)
[2016-07-26] MEDS: DULoxetine HCl DR 30 MG CAP PO SCH (09:48)
[2016-07-26] MEDS: FUROSEMIDE 20 MG TAB PO SCH (09:49)
[2016-07-26] MEDS: CALCIUM/VITAMIN D 250 MG/125 U TAB PO SCH ×2 (09:49→20:42)
[2016-07-26] MEDS: PANTOPRAZOLE SOD 40 MG DELAYED RELEASE TAB PO SCH (09:49)
[2016-07-26] MEDS ORDERED: OXYGENTANK NAS.CANULA (10:16)
[2016-07-26] MEDS ORDERED: TIOT1AER2 INH (10:16)
--- NOTE | 2016-07-26 10:20 | HHI.FF ---
Face to Face Verification Diagnosis: (1) Sleep disorder breathing (2) Diastolic CHF, chronic (3) Hypoxia (4) Anxiety (5) Chronic back pain Physical Therapy Order: Evaluate and Treat Home Health Nursing Order: Medical education Oxygen administration education I have seen patient Laurie Yusuf on 07/26/16. My clinical findings support the need for the requested home health care services because: Ltd mobility - disease progression Deconditioned w/ increased weakness Need for psychosocial assistance I certify that my clinical findings support that this patient is homebound because: Unsafe to leave home unassisted Poor cardiac reserve Lupe Thomas MD Jul 26, 2016 10:20
[2016-07-26 12:00] VITALS: BP 104/56; PULSE 82; RESP 18; TEMP 97.8; O2SAT 95
[2016-07-26 16:00] VITALS: BP 125/57; PULSE 84; RESP 18; TEMP 98; O2SAT 94
--- NOTE | 2016-07-26 18:04 | HHI.PR ---
Subjective Remarks ALERT UP IN CHAIR no SOB Objective Vital Signs Date Time Temp Pulse Resp B/P Pulse Ox O2 Delivery O2 Flow Rate FiO2 07/26/16 16:00 98.0 84 18 125/57 94 07/26/16 12:00 97.8 82 18 104/56 95 07/26/16 08:05 86 07/26/16 08:00 98.2 82 20 118/56 94 07/25/16 21:33 82 07/25/16 20:00 98.0 78 16 118/98 98 I/O 07/25/16 07/25/16 07/25/16 07/26/16 07/26/16 07/26/16 07:00 15:00 23:00 07:00 15:00 23:00 Intake Total 120 ml 220 ml 480 ml 480 ml Output Total 600 ml 200 ml 700 ml Balance -480 ml 20 ml -220 ml 480 ml Intake Oral 120 ml 220 ml 480 ml 480 ml IV Total 0 ml Output Urine Total 600 ml 200 ml 700 ml # Voids 5 # Bowel Movements 0 0 0 Result Diagram: 07/22/1653007/22/16530 Objective Remarks GENERAL: SKIN: Warm and dry. HEAD: Atraumatic. Normocephalic. EYES: Pupils equal and round. No scleral icterus. No injection or drainage. ENT: No nasal bleeding or discharge. Mucous membranes pink and moist. NECK: Trachea midline. No JVD. CARDIOVASCULAR: Regular rate and rhythm. RESPIRATORY: No accessory muscle use. Clear to auscultation. Breath sounds equal bilaterally. GASTROINTESTINAL: Abdomen soft, non-tender, nondistended. Hepatic and splenic margins not palpable. MUSCULOSKELETAL: Extremities without clubbing, cyanosis, or edema. No obvious deformities. NEUROLOGICAL: Awake and alert. No obvious cranial nerve deficits. Motor grossly within normal limits. Five out of 5 muscle strength in the arms and legs. Normal speech. PSYCHIATRIC: Appropriate mood and affect; insight and judgment normal. Assessment and Plan Assessment and Plan ASSESSMENT RESPIRATORY FAILURE HYPOXIC AND HYPERCARBIC ? SDB CHF PLAN CHECK PFT O2 NEEDED BIPAP THERAPY npsg post discharge Fabiola Hicks MD Jul 26, 2016 18:04
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
[2016-07-26 20:00] VITALS: BP 126/59; PULSE 82; PULSE 90; RESP 18; TEMP 98.4; O2SAT 95
[2016-07-26] MEDS ORDERED: diphenhydrAMINE HCL 50 MG/ML VIAL IV PUSH ONE (20:30)
[2016-07-26] MEDS: ENOXAPARIN SODIUM 40 MG/0.4 ML SYRINGE SQ SCH (20:41)
[2016-07-26] MEDS: ATORVASTATIN 10 MG TAB PO SCH (20:42)
[2016-07-26] MEDS: POTASSIUM CHLORIDE 10 MEQ CONTROLLED RELEASE TAB PO SCH (20:43)
[2016-07-26 21:06] VITALS: O2SAT 98
[2016-07-27] VITALS: BP 146/64; PULSE 89; RESP 18; TEMP 98.2; O2SAT 93
[2016-07-27] MEDS: ACETAMINOPHEN/HYDROcodone 325 MG/5 MG TAB PO PRN ×2 (00:38→09:13)
[2016-07-27] MEDS ORDERED: diphenhydrAMINE HCL 50 MG/ML VIAL IV PUSH ONE (03:00)
[2016-07-27] MEDS ORDERED: methylPREDNISolone SOD SUCC 40 MG/1 ML VIAL IV PUSH ONE (03:00)
[2016-07-27 06:00] VITALS: PULSE 89; RESP 18; TEMP 98.2
[2016-07-27 08:00] VITALS: BP 120/72; PULSE 112; RESP 20; TEMP 97.7; O2SAT 95
--- NOTE | 2016-07-27 08:20 | HHI.PR ---
Subjective Remarks ALERT UP IN CHAIR no SOB Objective Vital Signs Date Time Temp Pulse Resp B/P Pulse Ox O2 Delivery O2 Flow Rate FiO2 07/27/16 00:00 98.2 89 18 146/64 93 07/26/16 21:06 98 Nasal Cannula 2.00 07/26/16 20:00 90 07/26/16 20:00 98.4 82 18 126/59 95 07/26/16 16:00 98.0 84 18 125/57 94 07/26/16 12:00 97.8 82 18 104/56 95 I/O 07/26/16 07/26/16 07/26/16 07/27/16 07/27/16 07/27/16 07:00 15:00 23:00 07:00 15:00 23:00 Intake Total 480 ml 480 ml 360 ml 240 ml Output Total 700 ml Balance -220 ml 480 ml 360 ml 240 ml Intake Oral 480 ml 480 ml 360 ml 240 ml IV Total 0 ml Output Urine Total 700 ml # Voids 5 1 2 # Bowel Movements 0 0 0 Objective Remarks GENERAL: SKIN: Warm and dry. HEAD: Atraumatic. Normocephalic. EYES: Pupils equal and round. No scleral icterus. No injection or drainage. ENT: No nasal bleeding or discharge. Mucous membranes pink and moist. NECK: Trachea midline. No JVD. CARDIOVASCULAR: Regular rate and rhythm. RESPIRATORY: No accessory muscle use. Clear to auscultation. Breath sounds equal bilaterally. GASTROINTESTINAL: Abdomen soft, non-tender, nondistended. Hepatic and splenic margins not palpable. MUSCULOSKELETAL: Extremities without clubbing, cyanosis, or edema. No obvious deformities. NEUROLOGICAL: Awake and alert. No obvious cranial nerve deficits. Motor grossly within normal limits. Five out of 5 muscle strength in the arms and legs. Normal speech. PSYCHIATRIC: Appropriate mood and affect; insight and judgment normal. Assessment and Plan Assessment and Plan ASSESSMENT RESPIRATORY FAILURE HYPOXIC AND HYPERCARBIC ? SDB CHF PLAN HOME TODAY O2 AT HOME BIPAP THERAPY npsg post discharge Fabiola Hicks MD Jul 27, 2016 08:20
[2016-07-27] MEDS: FERROUS SULFATE 325 MG (65 MG ELEMENTAL IRON) TAB PO SCH (09:00)
[2016-07-27] MEDS: SODIUM CHLORIDE 0.9% FLUSH 10 ML FLUSH IV FLUSH SCH (09:00)
[2016-07-27] MEDS: DOCUSATE SODIUM 50 MG/SENNA 8.6 MG TAB PO SCH (09:00)
[2016-07-27] MEDS: FUROSEMIDE 20 MG TAB PO SCH (09:00)
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
[2016-07-27] MEDS: DULoxetine HCl DR 30 MG CAP PO SCH (09:29)
[2016-07-27] MEDS: CALCIUM/VITAMIN D 250 MG/125 U TAB PO SCH (09:29)
[2016-07-27] MEDS: PANTOPRAZOLE SOD 40 MG DELAYED RELEASE TAB PO SCH (09:29)
[2016-07-27] MEDS: LEVOFLOXACIN 750 MG TAB PO SCH (09:29)
--- NOTE | 2016-09-28 12:04 | RSPPFT ---
DATE OF PROCEDURE: 07/26/16 COMMENTS: Spirometry with FVC of 1.0, FEV1 of 0.9, FEV1/FVC ratio 85%. A non-significant response to acutely inhaled bronchodilator noted. IMPRESSION: 1. Decreased flow rates. 2. No gross obstruction. 3. Possible airways restriction. If clinically warranted, lung volumes may be helpful.
== END 2016-07-27 10:00 | DRG 189 ==
LOC: NEPC 16:25 → NEDA 19:32 → NEPGCP 23:11 → OBSVTOIN 07-22 12:39 → N04B 07-22 18:33
PROVIDERS: ADMIT Family Medicine; ATTEND Family Medicine
DX: J96.01 Acute respiratory failure with hypoxia (principal); G93.41 Metabolic encephalopathy; E87.2 Acidosis; I50.32 Chronic diastolic (congestive) heart failure; I11.0 Hypertensive heart disease with heart failure; J96.02 Acute respiratory failure with hypercapnia; K21.9 Gastro-esophageal reflux disease without esophagitis; I25.10 Atherosclerotic heart disease of native coronary artery without angina pectoris; M54.9 Dorsalgia, unspecified; G89.29 Other chronic pain; G47.30 Sleep apnea, unspecified; F10.10 Alcohol abuse, uncomplicated; E78.5 Hyperlipidemia, unspecified; M19.90 Unspecified osteoarthritis, unspecified site; F40.240 Claustrophobia; F41.9 Anxiety disorder, unspecified; Z77.22 Contact with and (suspected) exposure to environmental tobacco smoke (acute) (chronic); Z86.718 Personal history of other venous thrombosis and embolism; Z88.2 Allergy status to sulfonamides; Z91.030 Bee allergy status; Z96.653 Presence of artificial knee joint, bilateral
CPT/HCPCS: 36600; 71010; 80048; 82550; 82552; 82805; 83880; 84443; 84484; 85025; 93005; 94060; 94620; G0378; J1200; J1650; J2405; J2920

== ENCOUNTER → 2016-08-24 | Outpatient (CLI) | payer MEDICARE ==
[~2016-08-24] MED LIST changes: -CALC1TAB12 PO; +GNP3TAB PO; -HYDR50TA15 PO; +K-TA10TA PO; +ONDA1TAB16 PO; +OSCA200T PO; -POTA-243 PO; -PROP10TA6 PO; -SENN1TAB PO; +SENN8.6T19 PO; -SENS113T TOPICAL; +TIOT1AER2 INH
[2016-08-24 11:38] LABS: BLOOD GAS BASE EXCESS 5.2 mmol/L (-2-2); BLOOD GAS CARBOXYHEMOGLOBIN 1.5 % (0-4); BLOOD GAS HCO3 30 mmol/L (22-26); BLOOD GAS O2 HGB SATURATION 88 % (90-100); BLOOD GAS OXYGEN CONTENT 16.1 Vol % (12.0-20.0); BLOOD GAS PCO2 48 mmHg (38-42); BLOOD GAS PO2 60 mmHg (61-120); TEMP CORR TO 98.6
[2016-08-24 11:44] LABS: CRITICAL VALUE YES; DRAW SITE RT RADIAL; FIO2 21 %; NUMBER OF ARTERIAL PUNCTURES 1; STAT NO; ULNAR PULSE PRESENT
== END ==
LOC: HRSP 10:54
PROVIDERS: ATTEND Internal Medicine Sleep Medicine
DX: R06.89 Other abnormalities of breathing (principal)
CPT/HCPCS: 36600; 82805